=== PATIENT | male | born 1975 | race Caucasian/White ===

== ENCOUNTER 2017-10-19 15:18 | Emergency (ER) | payer MEDICAID ==
[~2017-10-19] VITALS: Ht 190.5 cm; Wt 88.9 kg
[~2017-10-19 15:18] MED LIST: AMPH30TA2 PO; FOLI-17 PO; GABA300C10 PO; LORA-446 PO; QUET25TA PO; QUET50TA5 PO; THIA100T6 PO; ZOLP10TA PO
[2017-10-19 15:20] VITALS: BP 138/91
== END 2017-10-19 16:40 | disposition left against medical advice (07) ==
LOC: ED 16:00
DX: F41.9 Anxiety disorder, unspecified (principal)
CPT/HCPCS: 99283

== ENCOUNTER 2018-01-27 16:33 | Emergency (ER) | payer MEDICAID ==
[~2018-01-27] VITALS: Ht 190.5 cm; Wt 87.9 kg
[2018-01-27] MEDS ORDERED: AMPH30TA2 PO (17:13)
[2018-01-27 17:22] VITALS: BP 113/80
== END 2018-01-27 17:42 | disposition home or self-care (01) ==
LOC: ED 17:37
DX: F41.9 Anxiety disorder, unspecified (principal); F15.10 Other stimulant abuse, uncomplicated; Z59.0 Homelessness; F32.9 Major depressive disorder, single episode, unspecified; F42.9 Obsessive-compulsive disorder, unspecified
CPT/HCPCS: 99284

== ENCOUNTER 2018-09-04 16:36 | Observation (INO) | payer MEDICAID ==
[~2018-09-04] VITALS: Ht 190.5 cm; Wt 89.9 kg
[~2018-09-04 16:36] MED LIST changes: -THIA100T6 PO; +THIA100T67 PO
[2018-09-04 17:30] LABS: BASOPHILS # (AUTO) 0.02 x10^3/uL (0-0.1); BASOPHILS % (AUTO) 0 % (0-1); EOSINOPHILS # (AUTO) 0.03 x10^3/uL (0-0.4); EOSINOPHILS % (AUTO) 1 % (1-7); LYMPHOCYTES # (AUTO) 3.03 x10^3/uL (1-3.4); LYMPHOCYTES % (AUTO) 49 % (22-44); MD NO; MEAN CORPUSCULAR HGB CONC 34.6 g/dL (33.2-36.2); MEAN CORPUSCULAR VOLUME 92.6 fL (81-97); MEAN PLATELET VOLUME 7.4 fL (7.4-10.4); MONOCYTES # (AUTO) 0.31 x10^3/uL (0.2-0.8); MONOCYTES % (AUTO) 5 % (2-9); NEUTROPHILS # (AUTO) 2.86 x10^3/uL (1.8-6.8); NEUTROPHILS % (AUTO) 46 % (42-75); PLATELET COUNT 288 x10^3/uL (130-400); RED BLOOD COUNT 4.99 x10^6/uL (4.38-5.82); RED CELL DISTRIBUTION WIDTH 13.6 % (9.4-14.8)
[2018-09-04 17:45] LABS: ALBUMIN 4.2 g/dL (3.4-5.0); ANION GAP 12 mmol/L (5-15); CALCIUM 8.5 mg/dL (8.5-10.1); CHLORIDE 103 mmol/L (98-107); CREATININE 0.88 mg/dL (0.7-1.3)
[2018-09-04 17:56] LABS: ACETAMINOPHEN < 2 mcg/mL (10-30); SALICYLATE LEVEL < 1.7 mg/dL (2.8-20.0)
[2018-09-04] MEDS: PLEASE ENTER HEIGHT AND WEIGHT MC SCH (22:15)
[2018-09-04] MEDS ORDERED: ONDANSETRON ODT 4 MG PO PRN (22:30)
[2018-09-04] MEDS ORDERED: ZIPRASIDONE 20 MG INJ IM PRN (22:30)
[2018-09-04] MEDS ORDERED: ZIPRASIDONE 20MG CAPSULE PO PRN (22:30)
[2018-09-04] MEDS ORDERED: DIPHENHYDRAMINE 50 MG CAPSULE PO PRN (22:30)
[2018-09-04] MEDS ORDERED: DOCUSATE 100 MG CAPSULE PO PRN (22:30)
[2018-09-04] MEDS ORDERED: ACETAMINOPHEN 325 MG TABLET PO PRN (22:30)
[2018-09-04 23:54] LABS: AMPHETAMINE SCREEN, URINE Positive (Negative); BARBITURATE SCREEN, URINE Negative (Negative); BENZODIAZEPINE SCREEN, URINE Negative (Negative); CANNABINOID SCREEN, URINE Negative (Negative); COCAINE SCREEN, URINE Negative (Negative); METHADONE SCREEN, URINE Negative (Negative); OPIATE SCREEN, URINE Negative (Negative)
[2018-09-05 00:41] VITALS: BP 112/71
[2018-09-05] MEDS: PLEASE ENTER HEIGHT AND WEIGHT MC SCH (00:57)
[2018-09-05 08:44] VITALS: BP 115/63
[2018-09-05] MEDS ORDERED: DOCU-131 PO (09:11)
== END 2018-09-05 09:17 ==
LOC: ED 20:57 → SUATTDRO 22:02 → EDIP 22:03 → 2N 09-05 00:31
PROVIDERS: ADMIT Family Medicine; ATTEND Family Medicine
DX: R45.851 Suicidal ideations (principal); F41.9 Anxiety disorder, unspecified; F32.9 Major depressive disorder, single episode, unspecified; F15.10 Other stimulant abuse, uncomplicated; F10.120 Alcohol abuse with intoxication, uncomplicated; F42.9 Obsessive-compulsive disorder, unspecified; F95.2 Tourette's disorder; F90.9 Attention-deficit hyperactivity disorder, unspecified type; Z91.19 Patient's noncompliance with other medical treatment and regimen
CPT/HCPCS: 36415; 80048; 80307; 80329; 82040; 85025; 99285; G0378; Q0177; G0480

== ENCOUNTER 2019-03-01 04:32 | Inpatient (IN) | payer MEDICAID ==
[~2019-03-01] VITALS: Ht 190.5 cm; Wt 93.3 kg
[~2019-03-01 04:32] MED LIST changes: +DOCU-131 PO; +GABA100C PO; +LORA2TAB99 PO; -QUET25TA PO; +QUET25TA7 PO
[2019-03-01] MEDS ORDERED: CHARCOAL/SORBITOL 50 GM/240 ML ONE (04:58)
--- NOTE | 2019-03-01 05:02 | NUR ---
Pt states hx of anxiety and takes gabapentin for anxiety. States hearing voices and taking 200, 300 mg gabapentin tablets today. Pa immediately notified. All monitoring hooked up, iv initiated, and 1 tube of activiated charcoal given per pa verbal order at 0500. Emesis bags given to pt.
--- NOTE | 2019-03-01 05:08 | NUR ---
case [id number] spoke with bradley salinas at poison control.
[2019-03-01] MEDS ORDERED: LORazepam 1MG TABLET PO ONE (05:30)
[2019-03-01] MEDS ORDERED: CHARCOAL/SORBITOL 50 GM/240 ML PO ONE (05:30)
[2019-03-01] MEDS ORDERED: LORazepam 1MG TABLET ONE ×2 (05:36→09:42)
[2019-03-01 05:38] LABS: AMPHETAMINE SCREEN, URINE Negative (Negative); BARBITURATE SCREEN, URINE Negative (Negative); BENZODIAZEPINE SCREEN, URINE Negative (Negative); CANNABINOID SCREEN, URINE Negative (Negative); COCAINE SCREEN, URINE Negative (Negative); METHADONE SCREEN, URINE Negative (Negative); OPIATE SCREEN, URINE Negative (Negative)
--- NOTE | 2019-03-01 05:40 | NUR ---
Poison control states peak onset of 1-3 hours and to observe pt for minimumof 6 hours. INHALATION THERAPY TEACHER depression biggest side effect, as well as hypotension. MD ordered 1 mg po ativan for d/t s/s. Pt is shaky at bedside and mildly tachycardic. Order clarified w/ and this rn gave via JAN. no other immediate needs from pt. Wctm.
[2019-03-01 05:45] LABS: BASOPHILS # (AUTO) 0.02 x10^3/uL (0-0.1); BASOPHILS % (AUTO) 0 % (0-1); EOSINOPHILS # (AUTO) 0.08 x10^3/uL (0-0.4); EOSINOPHILS % (AUTO) 1 % (1-7); LYMPHOCYTES # (AUTO) 2.64 x10^3/uL (1-3.4); LYMPHOCYTES % (AUTO) 46 % (22-44); MD NO; MEAN CORPUSCULAR HEMOGLOBIN 31.8 pg (27.5-34.5); MEAN CORPUSCULAR HGB CONC 34.9 g/dL (33.2-36.2); MEAN CORPUSCULAR VOLUME 91.3 fL (81-97); MEAN PLATELET VOLUME 7.4 fL (7.4-10.4); MONOCYTES # (AUTO) 0.37 x10^3/uL (0.2-0.8); MONOCYTES % (AUTO) 6 % (2-9); NEUTROPHILS # (AUTO) 2.67 x10^3/uL (1.8-6.8); NEUTROPHILS % (AUTO) 46 % (42-75); PLATELET COUNT 234 x10^3/uL (130-400); RED BLOOD COUNT 5.35 x10^6/uL (4.38-5.82); RED CELL DISTRIBUTION WIDTH 13.6 % (9.4-14.8)
[2019-03-01 05:57] LABS: ALBUMIN 4.5 g/dL (3.4-5.0); ANION GAP 10 mmol/L (5-15); CALCIUM 8.7 mg/dL (8.5-10.1); CHLORIDE 110 mmol/L (98-107)
[2019-03-01 05:59] LABS: SALICYLATE LEVEL < 1.7 mg/dL (2.8-20.0)
[2019-03-01 06:00] LABS: ALANINE AMINOTRANSFERASE 30 U/L (12-78); ALKALINE PHOSPHATASE 85 U/L (45-117); BILIRUBIN,TOTAL 0.3 mg/dL (0.2-1.0); CREATININE 1.08 mg/dL (0.7-1.3); TOTAL PROTEIN 7.5 g/dL (6.4-8.2)
[2019-03-01 06:04] LABS: ACETAMINOPHEN < 2 mcg/mL (10-30)
--- NOTE | 2019-03-01 06:13 | NUR ---
Appearing less anxious and less shakey. States feeling better after medical microbiologist. Wctm.
--- NOTE | 2019-03-01 06:57 | NUR ---
Pt report to francois WOO.
[2019-03-01] MEDS ORDERED: LORazepam 2 MG/ML, 1ML IVPush PRN (07:00)
--- NOTE | 2019-03-01 07:00 | NUR ---
SBAR RPT REC'D AND ASSUMED PT CARE. ROOM WITH GARAGE DOOR DOWN AT SINK AREA. HEAD WALL ACCESSABLE PT IS ON CARDIAC MONITORING 2/2 TO INGESTION OF GABAPETIN. SITTER AT DOORWAY WITH PT IN VIEW FOR SAFETY.
--- NOTE | 2019-03-01 07:42 | NUR ---
PT TO ROOM 345, BELONGINGS BAG X 1. PT TRANSPORTED VIA GURNEY WITH EMT, RN ESCORT. PT ON MONITOR.
[2019-03-01 07:50] VITALS: BP 158/103
[2019-03-01] MEDS: SODIUM CHLORIDE 0.9% 1,000 ML IV SCH (08:24)
[2019-03-01] MEDS ORDERED: ACETAMINOPHEN 325 MG TABLET PO PRN (08:30)
[2019-03-01] MEDS ORDERED: LORazepam 2 MG/ML, 1ML IV PRN (08:30)
[2019-03-01] MEDS ORDERED: LORazepam 1MG TABLET PO PRN (08:30)
[2019-03-01] MEDS ORDERED: ONDANSETRON ODT 4 MG PO PRN (08:30)
[2019-03-01] MEDS ORDERED: ONDANSETRON 2MG/ML, 2ML IVPush PRN (08:30)
[2019-03-01] MEDS: HEPARIN 5,000 UNITS/ML, 1ML SQ SCH ×2 (09:39→17:19)
[2019-03-01] MEDS: THIAMINE 100MG TABLET PO SCH (09:39)
[2019-03-01 13:14] VITALS: BP 136/85
[2019-03-01] MEDS: LORazepam 2 MG/ML, 1ML IV PRN ×2 (13:24→23:11)
[2019-03-01 19:50] VITALS: BP 144/78
[2019-03-02 01:56] VITALS: BP 121/71
[2019-03-02] MEDS: HEPARIN 5,000 UNITS/ML, 1ML SQ SCH ×3 (02:33→17:15)
[2019-03-02] MEDS: SODIUM CHLORIDE 0.9% 1,000 ML IV SCH (05:14)
[2019-03-02 05:23] LABS: MEAN CORPUSCULAR HGB CONC 34.8 g/dL (33.2-36.2); MEAN CORPUSCULAR VOLUME 92.1 fL (81-97); MEAN PLATELET VOLUME 7.4 fL (7.4-10.4); PLATELET COUNT 205 x10^3/uL (130-400); RED CELL DISTRIBUTION WIDTH 14.1 % (9.4-14.8)
[2019-03-02 05:41] LABS: ANION GAP 6 mmol/L (5-15); CALCIUM 8.5 mg/dL (8.5-10.1); CHLORIDE 108 mmol/L (98-107); CREATININE 0.85 mg/dL (0.7-1.3)
[2019-03-02 05:59] LABS: MD YES
[2019-03-02 06:01] LABS: <PLATELET ESTIMATE> ADEQUATE; <PLT MORPHOLOGY> NORMAL PLT MORPH; <RBC MORPHOLOGY> NORMAL; EOS#(MANUAL) 0.06 x10^3/uL (0.0-0.4); EOS% (MANUAL) 1 % (1-7); LYMPH#(MANUAL) 3.14 x10^3/uL (1-3.4); LYMPHS% (MANUAL) 57 % (22-44); MONOS#(MANUAL) 0.39 x10^3/uL (0.3-2.7); MONOS% (MANUAL) 7 % (2-9); SEG#(MANUAL) 1.93 x10^3/uL (1.8-6.8); SEGS% (MANUAL) 35 % (42-75)
[2019-03-02 07:25] VITALS: BP 106/80
[2019-03-02] MEDS: THIAMINE 100MG TABLET PO SCH (07:45)
[2019-03-02 12:04] VITALS: BP 121/87
[2019-03-02 19:30] VITALS: BP 179/108
[2019-03-02 21:35] VITALS: BP 129/83
[2019-03-02] MEDS: LORazepam 2 MG/ML, 1ML IV PRN (22:06)
[2019-03-03 00:02] VITALS: BP 139/80
[2019-03-03] MEDS: HEPARIN 5,000 UNITS/ML, 1ML SQ SCH ×2 (02:29→12:10)
[2019-03-03] MEDS: SODIUM CHLORIDE 0.9% 1,000 ML IV SCH (04:15)
[2019-03-03 07:03] VITALS: BP 135/83
[2019-03-03] MEDS: THIAMINE 100MG TABLET PO SCH (08:31)
[2019-03-03] MEDS ORDERED: LORazepam 1MG TABLET PO PRN (12:30)
[2019-03-03 13:53] VITALS: BP 132/80
[2019-03-03 15:07] VITALS: BP 106/61
[2019-03-03] MEDS ORDERED: ZOLP10TA PO (15:43)
[2019-03-03 20:31] VITALS: BP 126/64
== END 2019-03-03 22:30 | DRG 918 ==
LOC: ED 06:41 → EDIP 06:42 → ED 07:06 → 3NW 07:58 → 4WST 11:57 → 2N 03-03 14:54
PROVIDERS: ADMIT Internal Medicine; ATTEND Internal Medicine
DX: T42.6X2A Poisoning by other antiepileptic and sedative-hypnotic drugs, intentional self-harm, initial encounter (principal); F10.239 Alcohol dependence with withdrawal, unspecified; F41.1 Generalized anxiety disorder; F42.9 Obsessive-compulsive disorder, unspecified; F90.9 Attention-deficit hyperactivity disorder, unspecified type; F32.9 Major depressive disorder, single episode, unspecified; I10 Essential (primary) hypertension; Y90.9 Presence of alcohol in blood, level not specified; G47.00 Insomnia, unspecified; Z91.19 Patient's noncompliance with other medical treatment and regimen; Z71.51 Drug abuse counseling and surveillance of drug abuser; Z91.5 Personal history of self-harm; Y92.89 Other specified places as the place of occurrence of the external cause; Z79.899 Other long term (current) drug therapy
CPT/HCPCS: 36415; 80048; 80053; 80307; 80329; 83735; 85025; 93005; 99285; G0378; J1644; Q0162; G0480; J2060; J7030

== ENCOUNTER 2019-03-17 21:02 | Emergency (ER) | payer MEDICAID ==
[~2019-03-17] VITALS: Ht 190.5 cm; Wt 91.5 kg
--- NOTE | 2019-03-17 21:30 | NUR ---
PT UNDRESSED AND PLACED IN GOWN, ROOM SECURED, SITTER AT DOORWAY. URINE COLLECTED/WALKED TO LAB. PT GIVING VARYING REPORTS OF WHY HE IS HERE TODAY. TO ERP, PT STATES HE TOOK EXTRA CLONIDINE AND DRANK ALCOHOL DUE TO ANXIETY AND STRESS TONIGHT. PT STATES HE HAS BEEN OUT OF REGULAR PRESCRIBED MEDS. PT TOLD OTHER STAFF, SA 2 HOURS STATION TENDER WITH 200 OR MORE CLONIDINE. PT ANXIOUSLY APPEARING BUT COOPERATIVE WITH CARE.
[2019-03-17 22:23] LABS: BASOPHILS # (AUTO) 0.01 x10^3/uL (0-0.1); BASOPHILS % (AUTO) 0 % (0-1); EOSINOPHILS # (AUTO) 0.03 x10^3/uL (0-0.4); EOSINOPHILS % (AUTO) 1 % (1-7); LYMPHOCYTES # (AUTO) 2.99 x10^3/uL (1-3.4); LYMPHOCYTES % (AUTO) 55 % (22-44); MD NO; MEAN CORPUSCULAR HEMOGLOBIN 31.9 pg (27.5-34.5); MEAN CORPUSCULAR HGB CONC 34.8 g/dL (33.2-36.2); MEAN CORPUSCULAR VOLUME 91.9 fL (81-97); MEAN PLATELET VOLUME 7.3 fL (7.4-10.4); MONOCYTES # (AUTO) 0.26 x10^3/uL (0.2-0.8); MONOCYTES % (AUTO) 5 % (2-9); NEUTROPHILS # (AUTO) 2.15 x10^3/uL (1.8-6.8); NEUTROPHILS % (AUTO) 40 % (42-75); PLATELET COUNT 273 x10^3/uL (130-400); RED BLOOD COUNT 4.99 x10^6/uL (4.38-5.82); RED CELL DISTRIBUTION WIDTH 13.8 % (9.4-14.8)
[2019-03-17 22:24] LABS: AMPHETAMINE SCREEN, URINE Negative (Negative); BARBITURATE SCREEN, URINE Negative (Negative); BENZODIAZEPINE SCREEN, URINE Negative (Negative); CANNABINOID SCREEN, URINE Negative (Negative); COCAINE SCREEN, URINE Negative (Negative); METHADONE SCREEN, URINE Negative (Negative); OPIATE SCREEN, URINE Negative (Negative)
[2019-03-17 22:35] LABS: ALANINE AMINOTRANSFERASE 33 U/L (12-78); ALBUMIN 4.3 g/dL (3.4-5.0); ANION GAP 7 mmol/L (5-15); CALCIUM 8.7 mg/dL (8.5-10.1); CHLORIDE 108 mmol/L (98-107)
[2019-03-17 22:36] LABS: SALICYLATE LEVEL < 1.7 mg/dL (2.8-20.0)
[2019-03-17 22:37] LABS: ALKALINE PHOSPHATASE 70 U/L (45-117); BILIRUBIN,TOTAL 0.5 mg/dL (0.2-1.0); CREATININE 1.12 mg/dL (0.7-1.3); TOTAL PROTEIN 7.3 g/dL (6.4-8.2)
[2019-03-17 22:39] LABS: ACETAMINOPHEN < 2 mcg/mL (10-30)
--- NOTE | 2019-03-17 22:57 | NUR ---
RESULTS BACK, NEED TO WAIT UNTIL PT SOBER THEN EVAL BY [facility]. PT RESTING QUIETLY, NAD. SITTER AT DOORWAY. Addendum: 03/17/19 at 2329 by JHONATAN PT GIVEN WATER AND WARM BLANKET AND UPDATED ON POC.
[2019-03-17] MEDS ORDERED: TRAZODONE 50MG TABLET ONE (23:43)
--- NOTE | 2019-03-17 23:45 | NUR ---
PER SITTER, PT RUSHED FROM ROOM TO BR AND BANGING ON WALL IN BR. THIS RN TO BR, ASKED IF PT OKAY. PT ANSWERS AND OPENS DOOR IMMEDIATELY STATING "I'M SO ANXIOUS RIGHT NOW, I NEED SOME VISTARIL, ATIVAN, OR TRAMADOL. I CAN'T STAND IT". PT WALKED BACK TO ROOM, TOLD REQUEST WOULD BE MADE TO ERP AND ASKED PT TO STAY IN ROOM. SITTER AT DOORWAY. ERP NOTIFIED OF PT BEHAVIOR, ORDER OBTAINED AND MED GIVEN PER ERP ORDER.
--- NOTE | 2019-03-17 23:59 | NUR ---
REPORT TO RIYA WOO, TRANSFER OF CARE AT THIS TIME.
[2019-03-18] MEDS ORDERED: TRAZODONE 50MG TABLET PO ONE
[2019-03-18] MEDS ORDERED: TRAZODONE 100MG TABLET PO ONE
--- NOTE | 2019-03-18 00:40 | NUR ---
PT RESTING CALMLY IN BED WITH EYES CLOSED. NO STATED NEEDS AT THIS TIME. SITTER AT DOOR FOR OBS.
--- NOTE | 2019-03-18 01:29 | NUR ---
PT RESTING CALMLY IN BED WITH EYES CLOSED, RESP EVEN AND NON LABORED. SITTER AT DOOR FOR OBS.
--- NOTE | 2019-03-18 02:23 | NUR ---
pt resting calmly in bed. no stated needs at this time. sitter at door for obs.
--- NOTE | 2019-03-18 03:07 | NUR ---
PT RESTING CALMLY IN BED WITH EYES CLOSED. RESP EVEN AND NON LABORED. SITTER AT DOOR FOR FREQUENT OBS.
--- NOTE | 2019-03-18 04:20 | NUR ---
PT RESTING CALMLY IN BED WITH EYES CLOSED. NO STATED NEEDS AT THIS TIME. SITTER AT DOOR FOR FREQUENT OBS.
--- NOTE | 2019-03-18 05:42 | NUR ---
PT CONTINUES TO REST IN BED. NO STATED NEEDS AT THIS TIME. SITTER AT DOOR. BREAKFAST HAS BEEN ORDRED.
--- NOTE | 2019-03-18 06:00 | NUR ---
[facility] contacted and all information provided
--- NOTE | 2019-03-18 06:42 | NUR ---
NICOLE CALLED AND STATES ETA [phone]
--- NOTE | 2019-03-18 07:08 | NUR ---
REPORT GIVEN TO [facility]ARE HEATING EQUIPMENT INSTALLER. REPORT ALSO GIVEN TO PAULINE WOO
--- NOTE | 2019-03-18 07:23 | NUR ---
REPORT FROM CHILO RITTER. CARE ASSUMED. PT RESTING IN ROOM, SITTER IN HALLWAY. NO NEEDS CURRENTLY.
[2019-03-18 07:44] VITALS: BP 134/90
--- NOTE | 2019-03-18 08:15 | NUR ---
[facility] AT BEDSIDE
--- NOTE | 2019-03-18 08:53 | NUR ---
[facility] RE[facility] PL[facility] FOR PT CARE. PT RESTING COMFORTABLY IN BED. SITTER REMAINS IN HALLWAY.
[2019-03-18] MEDS ORDERED: LORazepam 1MG TABLET ONE (09:36)
[2019-03-18] MEDS ORDERED: LORazepam 1MG TABLET PO ONE (10:00)
--- NOTE | 2019-03-18 10:11 | NUR ---
PT TO BE DC TO [facility] AT 1130. AWARE. REMAINS RESTING IN ROOM. NO NEEDS AT THIS TIME.
--- NOTE | 2019-03-18 11:15 | NUR ---
REMAINS RESTING IN ROOM. NO NEEDS AT THIS TIME. SITTER IN HALLWAY.
== END 2019-03-18 11:30 ==
LOC: ED 22:20
DX: F10.229 Alcohol dependence with intoxication, unspecified (principal); Z72.9 Problem related to lifestyle, unspecified; F32.9 Major depressive disorder, single episode, unspecified; F42.9 Obsessive-compulsive disorder, unspecified; F98.8 Other specified behavioral and emotional disorders with onset usually occurring in childhood and adolescence
CPT/HCPCS: 36415; 80053; 80307; 85025; 99285

== ENCOUNTER 2019-05-30 21:22 | Emergency (ER) | payer MEDICAID ==
[~2019-05-30] VITALS: Ht 190.5 cm; Wt 94.8 kg
[2019-05-30 21:24] VITALS: BP 138/92
== END 2019-05-30 23:21 | disposition home or self-care (01) ==
LOC: ED 22:35
DX: F41.1 Generalized anxiety disorder (principal); Z72.9 Problem related to lifestyle, unspecified; Y90.0 Blood alcohol level of less than 20 mg/100 ml; F32.9 Major depressive disorder, single episode, unspecified; F98.8 Other specified behavioral and emotional disorders with onset usually occurring in childhood and adolescence; F42.9 Obsessive-compulsive disorder, unspecified; F10.129 Alcohol abuse with intoxication, unspecified
CPT/HCPCS: 36415; 80053; 80307; 85025; 93005; 99284

== ENCOUNTER 2019-06-01 13:49 | Emergency (ER) | payer MEDICAID ==
[~2019-06-01] VITALS: Ht 190.5 cm; Wt 93.2 kg
[2019-06-01 14:14] LABS: BASOPHILS # (AUTO) 0.05 x10^3/uL (0-0.1); BASOPHILS % (AUTO) 1 % (0-1); EOSINOPHILS # (AUTO) 0.04 x10^3/uL (0-0.4); EOSINOPHILS % (AUTO) 0 % (1-7); LYMPHOCYTES # (AUTO) 3.09 x10^3/uL (1-3.4); LYMPHOCYTES % (AUTO) 34 % (22-44); MD NO; MEAN CORPUSCULAR HEMOGLOBIN 31.3 pg (27.5-34.5); MEAN CORPUSCULAR HGB CONC 32.7 g/dL (33.2-36.2); MEAN CORPUSCULAR VOLUME 95.9 fL (81-97); MEAN PLATELET VOLUME 7.3 fL (7.4-10.4); MONOCYTES # (AUTO) 0.44 x10^3/uL (0.2-0.8); MONOCYTES % (AUTO) 5 % (2-9); NEUTROPHILS # (AUTO) 5.38 x10^3/uL (1.8-6.8); NEUTROPHILS % (AUTO) 60 % (42-75); PLATELET COUNT 337 x10^3/uL (130-400); RED BLOOD COUNT 5.91 x10^6/uL (4.38-5.82); RED CELL DISTRIBUTION WIDTH 14.1 % (9.4-14.8)
[2019-06-01 14:25] LABS: ALBUMIN 5.2 g/dL (3.4-5.0); ANION GAP 6 mmol/L (5-15); CALCIUM 9.4 mg/dL (8.5-10.1); CHLORIDE 106 mmol/L (98-107); CREATININE 1.16 mg/dL (0.7-1.3)
[2019-06-01 14:27] LABS: SALICYLATE LEVEL < 1.7 mg/dL (2.8-20.0)
--- NOTE | 2019-06-01 15:03 | NUR ---
PT AMBULATORY TO ROOM. ALL CLOTHES OFF AND BELONGINGS IN BAG AND PUT IN SECURE LOCKER. ROOM SECURED. SITTER AT BEDSIDE. PT STATES HE IS HERE BECAUSE HE IS FEELING SUICIDAL AT THIS TIME. STATES HE WOULD NORMALLY "TAKE PILLS" HIS PLAN BUT HE CURRENTLY HAS NO PILLS. STATES HE WAS HERE LAST NIGHT AND WAS DISCHARGED WITH GABAPENTIN WHICH HE WAS UNABLE TO FILL. PT IS APPROPRIATELY RESPONDING TO QUESTIONS. RESTING ON JACINTO. NADN. DE LEON.
[2019-06-01] MEDS ORDERED: LORazepam 2 MG/ML, 1ML ONE ×2 (15:09→21:19)
[2019-06-01] MEDS ORDERED: THIAMINE 100 MG/ML, 2ML ONE (15:11)
[2019-06-01 15:30] LABS: AMPHETAMINE SCREEN, URINE Positive (Negative); BARBITURATE SCREEN, URINE Negative (Negative); BENZODIAZEPINE SCREEN, URINE Negative (Negative); CANNABINOID SCREEN, URINE Negative (Negative); COCAINE SCREEN, URINE Negative (Negative); METHADONE SCREEN, URINE Negative (Negative); OPIATE SCREEN, URINE Negative (Negative)
[2019-06-01] MEDS ORDERED: THIAMINE 100 MG/ML, 2ML IM ONE (15:30)
[2019-06-01] MEDS ORDERED: SODIUM CHLORIDE FLUSH 10ML SYR IVF ONE (15:30)
[2019-06-01] MEDS ORDERED: SODIUM CHLORIDE 0.9% 1,000ML IVBOLUS ONE (15:30)
[2019-06-01] MEDS: LORazepam 2 MG/ML, 1ML IVPush PRN ×2 (15:53→21:25)
--- NOTE | 2019-06-01 15:54 | NUR ---
PT MEDICATED PER EMAR. RESTING ON GURNEY. NADN. REQUESTING CRACKERS AND WATER. PROVIDED WITH THEM.
--- NOTE | 2019-06-01 16:14 | NUR ---
PT STATES HE DRINKS 16 SHOTS/DAY. PT CURRENTLY RESTING ON GURNEY EATING SNACKS AND DRINKING WATER. DENIES NEEDS.
--- NOTE | 2019-06-01 16:28 | NUR ---
PT CONNECTED TO MONITOR. RESTING ON GURNEY. CHUYITAN. VSS. DENIES NEEDS. SITTER MONITORING PT.
[2019-06-01] MEDS ORDERED: CHLORDIAZEPOXIDE 25 MG CAPSULE PO PRN (16:30)
[2019-06-01] MEDS ORDERED: CHLORDIAZEPOXIDE 25 MG CAPSULE ONE (16:32)
--- NOTE | 2019-06-01 17:32 | NUR ---
PT RESTING ON JACINTO. ISAIAH. VSS. DENIES NEEDS.
--- NOTE | 2019-06-01 17:51 | NUR ---
PT BREATHYLIZED AT THIS TIME- 0.112
--- NOTE | 2019-06-01 18:04 | NUR ---
PT GIVEN DINNER AT THIS TIME. SITTING ON GURNEY. VSS. NADN. DENIES NEEDS. SITTER AT BEDSIDE.
--- NOTE | 2019-06-01 18:25 | NUR ---
PT RESTING ON JACINTO. JERRIS. ISAIAH. DENIES NEEDS. SITTER AT BEDSIDE.
--- NOTE | 2019-06-01 18:54 | NUR ---
REPORT RECIEVED FROM CHILO SHAFFER. PT RESTING COMFORTABLY IN STRECHTER. PT CURRENTLY ON THE MONITOR. VSS. PT HAS EVEN EQUAL CHEST RISE AND FALL. SITTER PRESENT.
--- NOTE | 2019-06-01 20:41 | NUR ---
[facility] AT BEDSIDE TO ASSESS PATIENT. PT COOPERATIVE.
--- NOTE | 2019-06-01 21:25 | NUR ---
PT REPORTS FEELING MORE ANXIOUS. CIWA UPDATED. PT MEDICATED PER MAR.
--- NOTE | 2019-06-01 21:33 | NUR ---
ELIZABETH RN: PACKET FAXED TO [facility], [facility], AND [facility]. AWAITING CONFIRMATION FAX.
--- NOTE | 2019-06-01 21:56 | NUR ---
ELIZABETH RN: RECEIVED FAX CONFIRMATION BACK FROM LISTED FACILITIES IN ABOVE NOTE.
--- NOTE | 2019-06-01 22:53 | NUR ---
TP RN: MEGAN FROM [facility] CALLED AND THEY WILL ACCEPT PT. AFTER 0000. ACCE[address] BUSBY
[2019-06-01 23:27] VITALS: BP 116/57
--- NOTE | 2019-06-02 00:03 | NUR ---
PT TO [facility] WITH [facility]. BELONGINGS WITH PATIENT. PT AMBULATORY WITH STEADY GAIT.
== END 2019-06-02 00:04 ==
LOC: ED 16:36
DX: F10.129 Alcohol abuse with intoxication, unspecified (principal); F32.9 Major depressive disorder, single episode, unspecified; F41.1 Generalized anxiety disorder; Z72.9 Problem related to lifestyle, unspecified; F98.8 Other specified behavioral and emotional disorders with onset usually occurring in childhood and adolescence; F42.9 Obsessive-compulsive disorder, unspecified; R11.2 Nausea with vomiting, unspecified
CPT/HCPCS: 36415; 80048; 80307; 82040; 85025; 96361; 96372; 96374; 96376; 99285; J2060; J3411; J7030

== ENCOUNTER 2019-12-14 22:16 | Emergency (ER) | payer MEDICAID ==
[~2019-12-14] VITALS: Ht 188 cm; Wt 100.0 kg
--- NOTE | 2019-12-14 22:23 | NUR ---
BIB [facility]. PT STATES HE WANTS TO OD BY TAKING A BUNCH OF PILL. PT NOT SPECIFIC ABOUT WHAT KIND OF PILL. PT ALSO ADMITS TO SIGNIFICANT ALCOHOL INTAKE BUT AGAIN REFUSES TO BE SPECIFIC ON QUANTITY/TPYE. EXTENSIVE HX OF SI, INPATIENT PSYCH ADMISSIONS.
--- NOTE | 2019-12-14 22:30 | NUR ---
PT PLACED IN SAFE ROOM, SITTER AT DOORWAY, PLACED IN GOWN, BELONGINGS PUT IN LOCKER.
[2019-12-14 22:54] LABS: BASOPHILS # (AUTO) 0.01 x10^3/uL (0-0.1); BASOPHILS % (AUTO) 0 % (0-1); EOSINOPHILS # (AUTO) 0.06 x10^3/uL (0-0.4); EOSINOPHILS % (AUTO) 1 % (1-7); LYMPHOCYTES # (AUTO) 2.83 x10^3/uL (1-3.4); LYMPHOCYTES % (AUTO) 53 % (22-44); MD NO; MEAN CORPUSCULAR HEMOGLOBIN 30.7 pg (27.5-34.5); MEAN CORPUSCULAR HGB CONC 34.1 g/dL (33.2-36.2); MEAN PLATELET VOLUME 7.7 fL (7.4-10.4); MONOCYTES # (AUTO) 0.33 x10^3/uL (0.2-0.8); MONOCYTES % (AUTO) 6 % (2-9); NEUTROPHILS # (AUTO) 2.15 x10^3/uL (1.8-6.8); NEUTROPHILS % (AUTO) 40 % (42-75); PLATELET COUNT 232 x10^3/uL (130-400); RED CELL DISTRIBUTION WIDTH 12.4 % (9.4-14.8)
[2019-12-14 23:05] LABS: ALBUMIN 4.3 g/dL (3.4-5.0); ANION GAP 9 mmol/L (5-15); CHLORIDE 110 mmol/L (98-107)
[2019-12-14 23:08] LABS: ALANINE AMINOTRANSFERASE 32 U/L (12-78); ALKALINE PHOSPHATASE 63 U/L (45-117); BILIRUBIN,TOTAL 0.3 mg/dL (0.2-1.0); CREATININE 0.98 mg/dL (0.7-1.3); TOTAL PROTEIN 7.4 g/dL (6.4-8.2)
[2019-12-14 23:14] LABS: SALICYLATE LEVEL < 1.7 mg/dL (2.8-20.0)
--- NOTE | 2019-12-14 23:15 | NUR ---
PT UP TO BR. NO OTHER NEEDS AT THIS TIME.
[2019-12-14 23:42] LABS: AMPHETAMINE SCREEN, URINE Negative (Negative); BARBITURATE SCREEN, URINE Negative (Negative); BENZODIAZEPINE SCREEN, URINE Negative (Negative); CANNABINOID SCREEN, URINE Negative (Negative); COCAINE SCREEN, URINE Negative (Negative); METHADONE SCREEN, URINE Negative (Negative); OPIATE SCREEN, URINE Negative (Negative)
--- NOTE | 2019-12-15 00:15 | NUR ---
PT RESTING WITH EYES CLOSED. SITTER IN DOORWAY.
--- NOTE | 2019-12-15 01:15 | NUR ---
PT RESTING WITH EYES CLOSED. SITTER IN DOORWAY.
--- NOTE | 2019-12-15 02:15 | NUR ---
PT UP TO BR. SITTER IN DOORWAY. NO OTHER NEEDS AT THIS TIME.
--- NOTE | 2019-12-15 03:00 | NUR ---
BA RECHECK. 0.100. PT RESTING COMFORTABLY. PT ABLE TO CARRY CONVERSATION. STATES HE IS VERY DEPRESSED AND STILL HAVING SI BY DRINKING AND TAKING PILLS. SNOUT PULLER NOTIFIED.
--- NOTE | 2019-12-15 04:00 | NUR ---
PT RESTING WITH EYES CLOSED. SITTER IN DOORWAY.
--- NOTE | 2019-12-15 05:01 | NUR ---
PT RESTING WITH EYES CLOSED. SITTER IN DOORWAY.
--- NOTE | 2019-12-15 06:00 | NUR ---
RPT TO TELEPSYCH. PT DENIES SI, STATES HE IS DEPRESSED AND THE ALCOHOL PROABLY HAS SOMETHING TO DO WITH IT. TELEPSYCH RECOMMENDING DC.
[2019-12-15 06:16] VITALS: BP 131/84
== END 2019-12-15 07:07 | disposition home or self-care (01) ==
LOC: ED 12-15 00:19
DX: F10.120 Alcohol abuse with intoxication, uncomplicated (principal); R45.851 Suicidal ideations; Y90.9 Presence of alcohol in blood, level not specified
CPT/HCPCS: 36415; 80053; 80307; 85025; 99283

== ENCOUNTER 2020-01-10 18:36 | Emergency (ER) | payer MEDICAID ==
[~2020-01-10] VITALS: Ht 190.5 cm; Wt 110.0 kg
--- NOTE | 2020-01-10 18:59 | NUR ---
ADRIAN. REPORT RECEIVED FROM EMS. PT WAS FOUND IN FRONT OF [facility]. PT STATES "I DON'T WANNA LIVE ANYMORE." +ETOH/OVERDOSE(POSSIBLE TEMAZEPAM 30MG X 10 PILLS). PT'S AOX4. SI. DENIES HI. ALL MONITORS IN PLACE. CALL LIGHT WITHIN REACH. NSR RATE 80'S ON [place] [address] AT THIS TIME.
--- NOTE | 2020-01-10 19:01 | NUR ---
REPORT GIVEN TO ERLINDA WOO.
--- NOTE | 2020-01-10 19:18 | NUR ---
ASSUMED CARE OF PT. 02 SAT DOWN TO 85% ON RA, PLACED 2L NC NOW 95%. SAFETY PRECAUTIONS IN PLACE.
--- NOTE | 2020-01-10 19:30 | NUR ---
PT AGRESSIVE AND COMBATIVE TOWARD STAFF, SECURITY CALLED AND INITIATED BEHAVIORAL RESTRAINTS, ORDER SIGNED BY ERP.
[2020-01-10 20:19] LABS: AMPHETAMINE SCREEN, URINE Positive (Negative); BARBITURATE SCREEN, URINE Negative (Negative); BENZODIAZEPINE SCREEN, URINE Positive (Negative); CANNABINOID SCREEN, URINE Negative (Negative); COCAINE SCREEN, URINE Negative (Negative); METHADONE SCREEN, URINE Negative (Negative); OPIATE SCREEN, URINE Negative (Negative)
[2020-01-10 20:22] LABS: BASOPHILS # (AUTO) 0.01 x10^3/uL (0-0.1); BASOPHILS % (AUTO) 0 % (0-1); EOSINOPHILS # (AUTO) 0.15 x10^3/uL (0-0.4); EOSINOPHILS % (AUTO) 2 % (1-7); LYMPHOCYTES # (AUTO) 2.56 x10^3/uL (1-3.4); LYMPHOCYTES % (AUTO) 41 % (22-44); MD NO; MEAN CORPUSCULAR HEMOGLOBIN 30.3 pg (27.5-34.5); MEAN CORPUSCULAR VOLUME 88.9 fL (81-97); MEAN PLATELET VOLUME 7.2 fL (7.4-10.4); MONOCYTES # (AUTO) 0.28 x10^3/uL (0.2-0.8); MONOCYTES % (AUTO) 5 % (2-9); NEUTROPHILS # (AUTO) 3.33 x10^3/uL (1.8-6.8); NEUTROPHILS % (AUTO) 53 % (42-75); PLATELET COUNT 340 x10^3/uL (130-400); RED BLOOD COUNT 4.75 x10^6/uL (4.38-5.82); RED CELL DISTRIBUTION WIDTH 12.9 % (9.4-14.8)
[2020-01-10 20:28] LABS: ALANINE AMINOTRANSFERASE 30 U/L (12-78); ALBUMIN 3.5 g/dL (3.4-5.0); ANION GAP 7 mmol/L (5-15); CALCIUM 8.4 mg/dL (8.5-10.1); CHLORIDE 108 mmol/L (98-107); CREATININE 1.09 mg/dL (0.7-1.3); SALICYLATE LEVEL < 1.7 mg/dL (2.8-20.0)
[2020-01-10 20:30] LABS: ALKALINE PHOSPHATASE 86 U/L (45-117); BILIRUBIN,TOTAL 0.3 mg/dL (0.2-1.0); TOTAL PROTEIN 6.9 g/dL (6.4-8.2)
--- NOTE | 2020-01-10 22:12 | NUR ---
RESTRAINTS REMOVED, PT AGREED TO COOPERATE WITH RN AND STAFF. SAFETY PRECAUTIONS IN PLACE.
[2020-01-10 22:44] VITALS: BP 113/73
== END 2020-01-10 23:05 | disposition home or self-care (01) ==
LOC: ED 18:46
DX: F10.120 Alcohol abuse with intoxication, uncomplicated (principal); F15.10 Other stimulant abuse, uncomplicated; Z72.9 Problem related to lifestyle, unspecified; Y90.0 Blood alcohol level of less than 20 mg/100 ml
CPT/HCPCS: 36415; 80053; 80307; 85025; 99283

== ENCOUNTER 2020-02-14 16:25 | Emergency (ER) | payer MEDICAID ==
[~2020-02-14] VITALS: Ht 190.5 cm; Wt 110.0 kg
[2020-02-14 17:03] LABS: BASOPHILS # (AUTO) 0.03 x10^3/uL (0-0.1); BASOPHILS % (AUTO) 1 % (0-1); EOSINOPHILS # (AUTO) 0.09 x10^3/uL (0-0.4); EOSINOPHILS % (AUTO) 1 % (1-7); LYMPHOCYTES # (AUTO) 2.19 x10^3/uL (1-3.4); LYMPHOCYTES % (AUTO) 35 % (22-44); MD NO; MEAN CORPUSCULAR HGB CONC 33.8 g/dL (33.2-36.2); MEAN CORPUSCULAR VOLUME 88.9 fL (81-97); MEAN PLATELET VOLUME 7.8 fL (7.4-10.4); MONOCYTES # (AUTO) 0.42 x10^3/uL (0.2-0.8); MONOCYTES % (AUTO) 7 % (2-9); NEUTROPHILS # (AUTO) 3.55 x10^3/uL (1.8-6.8); NEUTROPHILS % (AUTO) 57 % (42-75); PLATELET COUNT 205 x10^3/uL (130-400); RED BLOOD COUNT 4.89 x10^6/uL (4.38-5.82); RED CELL DISTRIBUTION WIDTH 13.7 % (9.4-14.8)
[2020-02-14 17:07] LABS: ALANINE AMINOTRANSFERASE 69 U/L (12-78); ALBUMIN 4.1 g/dL (3.4-5.0); ANION GAP 4 mmol/L (5-15); CALCIUM 8.5 mg/dL (8.5-10.1); CHLORIDE 108 mmol/L (98-107); CREATININE 1.06 mg/dL (0.7-1.3)
[2020-02-14 17:08] LABS: SALICYLATE LEVEL < 1.7 mg/dL (2.8-20.0)
[2020-02-14 17:09] LABS: ALKALINE PHOSPHATASE 56 U/L (45-117); BILIRUBIN,TOTAL 0.7 mg/dL (0.2-1.0)
--- NOTE | 2020-02-14 17:11 | NUR ---
Pt unarousable. Not able to complete physical assessment or h&p. Placed on 2lt oxygen nc. Eye opening to sternal rub.
--- NOTE | 2020-02-14 18:12 | NUR ---
PT SITTING IN BED, EYES CLOSED, RESPIRATIONS EVEN AND UNLABORED, NO SIGNS OF DISTRESS.
[2020-02-14 18:24] LABS: AMPHETAMINE SCREEN, URINE Negative (Negative); BARBITURATE SCREEN, URINE Negative (Negative); BENZODIAZEPINE SCREEN, URINE Positive (Negative); CANNABINOID SCREEN, URINE Negative (Negative); COCAINE SCREEN, URINE Negative (Negative); METHADONE SCREEN, URINE Negative (Negative); OPIATE SCREEN, URINE Negative (Negative)
--- NOTE | 2020-02-14 19:01 | NUR ---
REPORT GIVEN TO CHILO SIERRA.
--- NOTE | 2020-02-14 19:08 | NUR ---
Report received from CHILO Morgan. This RN to assume care. Patient resting in [place] with no complaints. Respirations even and unlabored.
[2020-02-14 20:49] VITALS: BP 97/62
--- NOTE | 2020-02-14 20:51 | NUR ---
Patient woke up and states he took more Tomazepam than he usually does along with two "tall boys." He states he just got kicked out of where he was living so he just wanted to forget about it for a day. Patient denies SI/HI.
--- NOTE | 2020-02-14 21:21 | NUR ---
Patient states he is feeling better. Patient is AAOx4, GCS 15. Discharge instructions given. All questions and concerns addressed. Patient ambulatory with steady gait. Belongings with patient.
== END 2020-02-14 21:47 | disposition home or self-care (01) ==
LOC: ED 19:40
DX: F13.129 Sedative, hypnotic or anxiolytic abuse with intoxication, unspecified (principal); R53.83 Other fatigue
CPT/HCPCS: 36415; 80053; 80307; 85025; 99285

== ENCOUNTER 2020-10-11 19:56 | Emergency (ER) | payer MEDICAID ==
[~2020-10-11] VITALS: Ht 190.5 cm; Wt 100.0 kg
[2020-10-11 22:03] VITALS: BP 116/67
== END 2020-10-11 22:06 | disposition home or self-care (01) ==
LOC: ED 21:16
DX: S01.01XA Laceration without foreign body of scalp, initial encounter (principal); Z76.0 Encounter for issue of repeat prescription; F17.200 Nicotine dependence, unspecified, uncomplicated; F15.10 Other stimulant abuse, uncomplicated; Y00.XXXA Assault by blunt object, initial encounter; Y93.89 Activity, other specified; Y92.410 Unspecified street and highway as the place of occurrence of the external cause; Y99.8 Other external cause status
CPT/HCPCS: 12032; 70450; 99284

== ENCOUNTER 2020-11-27 19:19 | Emergency (ER) | payer MEDICAID ==
[~2020-11-27] VITALS: Ht 190.5 cm; Wt 72.0 kg
--- NOTE | 2020-11-27 19:24 | NUR ---
Patient BIB ambulance from [facility] for possible OD. EMS states they were at [facility] dropping off another patient when they were approached by staff. Staff stated that patient was lethargic and they saw him drinking hand supervisor data processing. Patient admits to drinking some hand supervisor data processing and when asked why, he states, "I just did it. I did it." Patient states he has done this before with his brother. Patient also admits to drinking a fifth of [employer] and inhaling meth. Patient c/o lightheadedness. Denies nausea. Patient is in NAD. Respirations even and unlabored. Appears tired.
--- NOTE | 2020-11-27 19:33 | NUR ---
Patient denies SI. States he just wanted to take all these substances.
[2020-11-27 21:04] LABS: ALANINE AMINOTRANSFERASE 37 U/L (12-78); ANION GAP 7 mmol/L (5-15); BASOPHILS % (AUTO) 0 % (0-1); CALCIUM 8.6 mg/dL (8.5-10.1); CHLORIDE 102 mmol/L (98-107); EOSINOPHILS % (AUTO) 2 % (1-7); LYMPHOCYTES % (AUTO) 48 % (22-44); MEAN CORPUSCULAR HEMOGLOBIN 31.3 pg (27.5-34.5); MEAN CORPUSCULAR HGB CONC 34.9 g/dL (33.2-36.2); MEAN PLATELET VOLUME 6.8 fL (7.4-10.4); MONOCYTES % (AUTO) 8 % (2-9); NEUTROPHILS % (AUTO) 42 % (42-75); PLATELET COUNT 264 x10^3/uL (130-400); RED BLOOD COUNT 4.73 x10^6/uL (4.38-5.82); RED CELL DISTRIBUTION WIDTH 14.4 % (9.4-14.8); SALICYLATE LEVEL < 1.7 mg/dL (2.8-20.0)
[2020-11-27 21:06] LABS: ALKALINE PHOSPHATASE 98 U/L (45-117); BILIRUBIN,TOTAL 0.7 mg/dL (0.2-1.0); CREATININE 1.03 mg/dL (0.7-1.3); TOTAL PROTEIN 7.2 g/dL (6.4-8.2)
[2020-11-27 21:07] LABS: MD NO
[2020-11-27 23:20] VITALS: BP 101/60
== END 2020-11-27 23:57 | disposition home or self-care (01) ==
LOC: ED 21:32
DX: F15.229 Other stimulant dependence with intoxication, unspecified (principal); Z72.9 Problem related to lifestyle, unspecified; R94.31 Abnormal electrocardiogram [ECG] [EKG]
CPT/HCPCS: 36415; 80053; 80299; 80320; 80329; 85025; 93005; 99284; G0480

== ENCOUNTER 2020-12-15 07:48 | Inpatient (IN) | payer MEDICAID ==
[~2020-12-15] VITALS: Ht 190.5 cm; Wt 89.1 kg
[~2020-12-15 07:48] MED LIST changes: -FOLI-17 PO; +FOLI1TAB32 PO
[2020-12-15] MEDS ORDERED: SODIUM CHLORIDE 0.9% 1,000ML IVBOLUS ONE ×2 (08:30→09:30)
--- NOTE | 2020-12-15 08:31 | NUR ---
PATIENT BIB EMS FOR CHIEF C/O SA AND COLD EXPOSURE. PER EMS PATIENT OD ON TRAZADONE YESTERDAY, UNKNOWN TIME AND WAS SEEN PASSED OUT UNDER A TREE BY A BYSTANDER. SAME BYSTANDER SAW PATIENT UNDER THE SAME TREE THIS MORNING AND CALLED EMS. EMS UNABLE TO GET TEMP EN ROUTE, 18 GAUGE IV STARTED LEFT AC EN ROUTE, O2 APPLIED AT 5 LPM NC,VERSED AND WARMING FLUIDS STARTED EN ROUTE. PATIENT SHIVERING UNCONTROLLABLY, BEAR HUGGER PLACED ON PATIENT, O2 SATURATION 99% ON 3 LPM NC. RECTAL TEMP OF 95.7 F. PATIENT CONNECTED TO MONITOR, VSS. PATIENT ADMITS TO OD'ING ON 250 TRAZADONE PILLS, 300 GABAPENTIN PILLS, AND 300 VISTERAL PILLS YESTERDAY, UNKNOWN DOSAGES OF PILLS. ERMD AT BEDSIDE FOR EVALUATION. Addendum: 12/15/20 at 0846 by [email or web address] PATIENT REPORTS PAIN IN HIS LEFT LEG, STATES "I THINK I FELL."
[2020-12-15 08:34] LABS: BASOPHILS % (AUTO) 0 % (0-1); EOSINOPHILS % (AUTO) 0 % (1-7); LYMPHOCYTES % (AUTO) 9 % (22-44); MEAN CORPUSCULAR HEMOGLOBIN 30.5 pg (27.5-34.5); MEAN CORPUSCULAR HGB CONC 33.9 g/dL (33.2-36.2); MEAN PLATELET VOLUME 7.5 fL (7.4-10.4); MONOCYTES % (AUTO) 5 % (2-9); NEUTROPHILS % (AUTO) 86 % (42-75); PLATELET COUNT 238 x10^3/uL (130-400); RED BLOOD COUNT 5.39 x10^6/uL (4.38-5.82); RED CELL DISTRIBUTION WIDTH 14.9 % (9.4-14.8)
--- NOTE | 2020-12-15 08:34 | NUR ---
SITTER AT DOORWAY.
--- NOTE | 2020-12-15 08:34 | NUR ---
PATIENT BELONGINGS GATHERED AND PLACED IN BAG, LOCKED IN CABINET.
[2020-12-15 08:38] LABS: ALANINE AMINOTRANSFERASE 43 U/L (12-78); ALBUMIN 3.8 g/dL (3.4-5.0); ANION GAP 7 mmol/L (5-15); CALCIUM 8.9 mg/dL (8.5-10.1); CHLORIDE 105 mmol/L (98-107); SALICYLATE LEVEL 3.6 mg/dL (2.8-20.0)
--- NOTE | 2020-12-15 08:45 | NUR ---
URINE SAMPLE COLLECTED AND SENT TO LAB.
[2020-12-15 09:06] LABS: ALKALINE PHOSPHATASE 102 U/L (45-117); BILIRUBIN,TOTAL 0.6 mg/dL (0.2-1.0); CREATINE KINASE, TOTAL 2949 U/L (39-308); CREATININE 1.11 mg/dL (0.7-1.3); TOTAL PROTEIN 7.3 g/dL (6.4-8.2)
[2020-12-15 09:09] LABS: AMPHETAMINE SCREEN, URINE Positive (Negative); BARBITURATE SCREEN, URINE Negative (Negative); BENZODIAZEPINE SCREEN, URINE Negative (Negative); CANNABINOID SCREEN, URINE Negative (Negative); COCAINE SCREEN, URINE Negative (Negative); METHADONE SCREEN, URINE Negative (Negative); OPIATE SCREEN, URINE Negative (Negative)
[2020-12-15 09:12] LABS: MD SCAN
[2020-12-15] MEDS ORDERED: LACTATED RINGERS 1,000 ML IV SCH (09:30)
[2020-12-15] MEDS ORDERED: LACTATED RINGERS 1,000 ML IVBOLUS ONE (09:30)
--- NOTE | 2020-12-15 09:47 | NUR ---
PER DR RESENDIZ, SECOND LITER OF NORMAL SALINE NOT ADMINISTERED HE CHANGED IT TO LR.
--- NOTE | 2020-12-15 09:47 | NUR ---
REPORT RECEIVED FROM CHILO AKHTAR. [facility]
[2020-12-15 09:54] LABS: FREE T4 (FREE THYROXINE) 0.95 ng/dL (0.76-1.46)
[2020-12-15] MEDS ORDERED: LORazepam 0.5MG TABLET PO PRN (11:00)
[2020-12-15] MEDS ORDERED: ACETAMINOPHEN 325 MG TABLET PO PRN (11:00)
[2020-12-15] MEDS ORDERED: LORazepam 1MG TABLET PO PRN ×4 (11:00)
[2020-12-15] MEDS ORDERED: LORazepam 2 MG/ML, 1ML IV PRN ×4 (11:00)
[2020-12-15 11:11] VITALS: BP 107/70
[2020-12-15] MEDS: ENOXAPARIN 40 MG/0.4 ML SQ SCH (12:25)
[2020-12-15] MEDS: LACTATED RINGERS 1,000 ML IV SCH ×2 (12:27→18:42)
[2020-12-15] MEDS ORDERED: TRAZ-175 PO (12:50)
[2020-12-15 14:00] VITALS: BP 110/68
[2020-12-15] MEDS ORDERED: HYDR100C2 PO (16:19)
[2020-12-15] MEDS ORDERED: CARI3CAP PO (16:19)
[2020-12-15] MEDS: LORazepam 2 MG/ML, 1ML IV PRN ×2 (17:16→18:41)
[2020-12-15 20:50] VITALS: BP 99/63
[2020-12-16] MEDS: LACTATED RINGERS 1,000 ML IV SCH ×4 (00:35→22:25)
[2020-12-16] MEDS: LORazepam 2 MG/ML, 1ML IV PRN (00:36)
[2020-12-16 02:49] VITALS: BP 95/64
[2020-12-16 04:22] LABS: BASOPHILS % (AUTO) 0 % (0-1); EOSINOPHILS % (AUTO) 0 % (1-7); LYMPHOCYTES % (AUTO) 28 % (22-44); MEAN CORPUSCULAR HEMOGLOBIN 30.3 pg (27.5-34.5); MEAN CORPUSCULAR HGB CONC 33.6 g/dL (33.2-36.2); MEAN PLATELET VOLUME 7.3 fL (7.4-10.4); MONOCYTES % (AUTO) 6 % (2-9); NEUTROPHILS % (AUTO) 66 % (42-75); PLATELET COUNT 197 x10^3/uL (130-400); RED BLOOD COUNT 4.38 x10^6/uL (4.38-5.82); RED CELL DISTRIBUTION WIDTH 14.5 % (9.4-14.8)
[2020-12-16 04:26] LABS: MD NO
[2020-12-16 04:28] LABS: ALBUMIN 2.8 g/dL (3.4-5.0); ANION GAP 4 mmol/L (5-15); CALCIUM 8.1 mg/dL (8.5-10.1); CHLORIDE 108 mmol/L (98-107)
[2020-12-16 04:45] LABS: ALANINE AMINOTRANSFERASE 48 U/L (12-78); ALKALINE PHOSPHATASE 67 U/L (45-117); BILIRUBIN,TOTAL 0.8 mg/dL (0.2-1.0); CREATINE KINASE, TOTAL 3091 U/L (39-308); CREATININE 0.92 mg/dL (0.7-1.3); TOTAL PROTEIN 5.6 g/dL (6.4-8.2)
[2020-12-16 07:57] VITALS: BP 101/66
[2020-12-16] MEDS: FOLIC ACID 1 MG TABLET PO SCH (08:23)
[2020-12-16] MEDS: MULTIVITAMINS/MINERALS TABLET PO SCH (08:23)
[2020-12-16] MEDS: THIAMINE 200 MG in SODIUM CHLORIDE 0.9% 50 ML IV SCH (09:23)
[2020-12-16] MEDS: ENOXAPARIN 40 MG/0.4 ML SQ SCH (13:08)
[2020-12-16 13:17] VITALS: BP 109/68
[2020-12-16 20:12] VITALS: BP 107/67
[2020-12-17 01:49] VITALS: BP 105/65
[2020-12-17 04:33] LABS: BASOPHILS % (AUTO) 0 % (0-1); EOSINOPHILS % (AUTO) 1 % (1-7); LYMPHOCYTES % (AUTO) 37 % (22-44); MEAN CORPUSCULAR HEMOGLOBIN 30.4 pg (27.5-34.5); MEAN CORPUSCULAR HGB CONC 33.6 g/dL (33.2-36.2); MEAN PLATELET VOLUME 7.3 fL (7.4-10.4); MONOCYTES % (AUTO) 7 % (2-9); NEUTROPHILS % (AUTO) 53 % (42-75); PLATELET COUNT 186 x10^3/uL (130-400); RED BLOOD COUNT 4.32 x10^6/uL (4.38-5.82); RED CELL DISTRIBUTION WIDTH 14.2 % (9.4-14.8)
[2020-12-17 04:41] LABS: MD NO
[2020-12-17 04:50] LABS: ALANINE AMINOTRANSFERASE 43 U/L (12-78); ALBUMIN 2.7 g/dL (3.4-5.0); ANION GAP 7 mmol/L (5-15); CALCIUM 8.3 mg/dL (8.5-10.1); CHLORIDE 106 mmol/L (98-107)
[2020-12-17 05:04] LABS: ALKALINE PHOSPHATASE 67 U/L (45-117); BILIRUBIN,TOTAL 0.5 mg/dL (0.2-1.0); CREATINE KINASE, TOTAL 1584 U/L (39-308); TOTAL PROTEIN 5.4 g/dL (6.4-8.2)
[2020-12-17] MEDS: LACTATED RINGERS 1,000 ML IV SCH (05:04)
[2020-12-17 06:53] VITALS: BP 105/67
[2020-12-17] MEDS: MULTIVITAMINS/MINERALS TABLET PO SCH (07:51)
[2020-12-17] MEDS: THIAMINE 200 MG in SODIUM CHLORIDE 0.9% 50 ML IV SCH (07:51)
[2020-12-17] MEDS: FOLIC ACID 1 MG TABLET PO SCH (07:51)
[2020-12-17] MEDS ORDERED: THIAMINE 100 MG in DEXTROSE 5% 50 ML IVPB SCH (09:00)
[2020-12-17 12:21] VITALS: BP 114/70
[2020-12-17] MEDS: ENOXAPARIN 40 MG/0.4 ML SQ SCH (14:32)
[2020-12-17 19:55] VITALS: BP 123/75
[2020-12-18 02:07] VITALS: BP 124/74
[2020-12-18 05:17] LABS: BASOPHILS % (AUTO) 0 % (0-1); EOSINOPHILS % (AUTO) 2 % (1-7); LYMPHOCYTES % (AUTO) 38 % (22-44); MEAN CORPUSCULAR HEMOGLOBIN 30.5 pg (27.5-34.5); MEAN CORPUSCULAR HGB CONC 34.5 g/dL (33.2-36.2); MEAN PLATELET VOLUME 7.3 fL (7.4-10.4); MONOCYTES % (AUTO) 8 % (2-9); NEUTROPHILS % (AUTO) 52 % (42-75); PLATELET COUNT 218 x10^3/uL (130-400); RED BLOOD COUNT 4.47 x10^6/uL (4.38-5.82); RED CELL DISTRIBUTION WIDTH 13.8 % (9.4-14.8)
[2020-12-18 05:25] LABS: ALBUMIN 3.1 g/dL (3.4-5.0); ANION GAP 6 mmol/L (5-15); CALCIUM 8.5 mg/dL (8.5-10.1); CHLORIDE 107 mmol/L (98-107)
[2020-12-18 05:28] LABS: MD NO
[2020-12-18 05:29] LABS: ALANINE AMINOTRANSFERASE 48 U/L (12-78); ALKALINE PHOSPHATASE 69 U/L (45-117); BILIRUBIN,TOTAL 0.6 mg/dL (0.2-1.0); TOTAL PROTEIN 6.4 g/dL (6.4-8.2)
[2020-12-18 06:47] VITALS: BP 115/73
[2020-12-18] MEDS: MULTIVITAMINS/MINERALS TABLET PO SCH (08:59)
[2020-12-18] MEDS: FOLIC ACID 1 MG TABLET PO SCH (08:59)
[2020-12-18] MEDS: THIAMINE 200 MG in SODIUM CHLORIDE 0.9% 50 ML IV SCH (08:59)
[2020-12-18] MEDS ORDERED: LORazepam 1MG TABLET PO ONE (10:30)
[2020-12-18 12:12] VITALS: BP 119/78
[2020-12-18] MEDS: ENOXAPARIN 40 MG/0.4 ML SQ SCH (13:00)
== END 2020-12-18 16:54 | DRG 917 ==
LOC: ED 08:40 → 4WST 11:26
PROVIDERS: ADMIT Family Medicine; ATTEND Family Medicine
DX: T43.212A Poisoning by selective serotonin and norepinephrine reuptake inhibitors, intentional self-harm, initial encounter (principal); J96.01 Acute respiratory failure with hypoxia; G92 Toxic encephalopathy; F10.230 Alcohol dependence with withdrawal, uncomplicated; F33.2 Major depressive disorder, recurrent severe without psychotic features; M62.82 Rhabdomyolysis; F15.10 Other stimulant abuse, uncomplicated; F41.9 Anxiety disorder, unspecified; Z20.822 Contact with and (suspected) exposure to COVID-19; M79.605 Pain in left leg; G62.9 Polyneuropathy, unspecified; F42.9 Obsessive-compulsive disorder, unspecified; F41.1 Generalized anxiety disorder; R68.0 Hypothermia, not associated with low environmental temperature; Z87.891 Personal history of nicotine dependence; Z91.5 Personal history of self-harm; Z82.49 Family history of ischemic heart disease and other diseases of the circulatory system; Y92.89 Other specified places as the place of occurrence of the external cause
CPT/HCPCS: 36415; 72170; 80053; 80299; 80307; 80320; 80329; 82550; 83735; 84439; 84443; 85025; 87426; 93005; 96360; 99285; G0378; J1650; J3411; G0480; J2060; J7030; J7120

== ENCOUNTER 2020-12-27 10:58 | Inpatient (IN) | payer MEDICAID ==
[~2020-12-27] VITALS: Ht 190.5 cm; Wt 89.4 kg
[~2020-12-27 10:58] MED LIST changes: +ACAM333T7 PO; +CARI3CAP PO; +GABA-826 PO; +HYDR100C2 PO; +NICO-587 TD; +TRAZ-175 PO; +VENL75CA6 PO
[2020-12-27] MEDS ORDERED: SODIUM CHLORIDE 0.9% 1,000ML IVBOLUS ONE ×2 (11:30→13:00)
--- NOTE | 2020-12-27 11:36 | NUR ---
TASK RN: 2 BLOOD CULTURES/LACTATE AND FULL SET OF LABS DRAWN PIV PLACED REPORT TO NAVEEN WOO
[2020-12-27 11:41] LABS: BASOPHILS % (AUTO) 0 % (0-1); EOSINOPHILS % (AUTO) 0 % (1-7); LYMPHOCYTES % (AUTO) 8 % (22-44); MEAN CORPUSCULAR HEMOGLOBIN 29.8 pg (27.5-34.5); MEAN CORPUSCULAR HGB CONC 33.9 g/dL (33.2-36.2); MEAN PLATELET VOLUME 7.3 fL (7.4-10.4); MONOCYTES % (AUTO) 6 % (2-9); NEUTROPHILS % (AUTO) 85 % (42-75); PLATELET COUNT 369 x10^3/uL (130-400); RED BLOOD COUNT 4.27 x10^6/uL (4.38-5.82); RED CELL DISTRIBUTION WIDTH 14.6 % (9.4-14.8)
[2020-12-27] MEDS ORDERED: PROMETHAZINE 25 MG/ML, 1ML ONE (11:50)
[2020-12-27] MEDS ORDERED: MORPHINE SULFATE 4 MG/ML, 1ML ONE (11:50)
[2020-12-27] MEDS ORDERED: PIPERACILLIN/TAZO/PMX 3.375GM 50 ML ONE (11:50)
[2020-12-27 11:52] LABS: CHLORIDE 104 mmol/L (98-107)
[2020-12-27 11:55] LABS: ALBUMIN 2.8 g/dL (3.4-5.0); ANION GAP 9 mmol/L (5-15); CREATININE 1.05 mg/dL (0.7-1.3)
[2020-12-27] MEDS: MORPHINE SULFATE 4 MG/ML, 1ML IVPush PRN ×3 (11:56→22:14)
[2020-12-27] MEDS ORDERED: PIPERACILLIN/TAZO/PMX 3.375GM 50 ML IVPB ONE (12:00)
[2020-12-27] MEDS ORDERED: VANCOMYCIN PER PHARMACY MC ONE (12:00)
[2020-12-27] MEDS ORDERED: PROMETHAZINE 25 MG/ML, 1ML IM ONE (12:00)
[2020-12-27 12:05] LABS: MD SCAN
--- NOTE | 2020-12-27 12:17 | NUR ---
TASK RN: TO CT SCAN
[2020-12-27] MEDS ORDERED: VANCOMYCIN 2,200 MG in SODIUM CHLORIDE 0.9% 500 ML IV ONE (12:30)
[2020-12-27] MEDS ORDERED: OMNIPAQUE 350 MG/ML, 100ML BOTTLE ONE (12:31)
--- NOTE | 2020-12-27 13:00 | NUR ---
dr rider spoke with dr wheeler
--- NOTE | 2020-12-27 13:49 | NUR ---
REPORT TO CHILO PIKE
[2020-12-27] MEDS ORDERED: SENNA/DOCUSATE TABLET PO PRN (14:00)
[2020-12-27] MEDS ORDERED: VANCOMYCIN PER PHARMACY MC PRN (14:00)
[2020-12-27] MEDS ORDERED: POLYETHYLENE GLYCOL 17 GM PACKET PO PRN (14:00)
[2020-12-27] MEDS ORDERED: ONDANSETRON ODT 4 MG PO PRN (14:00)
[2020-12-27] MEDS ORDERED: LACTATED RINGERS 1,000 ML IV SCH (14:00)
--- NOTE | 2020-12-27 14:14 | NUR ---
REPORT TO CHILO HANLEY
--- NOTE | 2020-12-27 14:17 | NUR ---
800 MG GABAPENTIN 4X/DAY 100 MG TRAZADONE 3X/DAY 10 MG YU REYNA
[2020-12-27] MEDS ORDERED: FENTANYL PF 100 MCG/2ML ONE ×4 (14:40→16:43)
[2020-12-27] MEDS ORDERED: ROCURONIUM 10MG/ML,5ML ONE (14:42)
[2020-12-27] MEDS ORDERED: BUPIVACAINE/PF 0.5% ONE (14:43)
[2020-12-27] MEDS ORDERED: EPINEPHRINE 1 MG/ML, 1ML ONE (14:43)
[2020-12-27] MEDS ORDERED: CHLORHEXIDINE 15 ML UDC ONE (14:44)
[2020-12-27] MEDS ORDERED: PROPOFOL 10 MG/ML, 20ML ONE ×2 (14:49→15:22)
[2020-12-27] MEDS ORDERED: SUCCINYLCHOLINE 20 MG/ML, 10ML ONE (14:49)
[2020-12-27] MEDS ORDERED: EPHEDRINE 50 MG/ML, 1ML ONE (15:20)
[2020-12-27] MEDS ORDERED: ONDANSETRON 2MG/ML, 2ML ONE (15:27)
[2020-12-27] MEDS ORDERED: DEXAMETHASONE 4 MG/ML, 5ML ONE (15:27)
[2020-12-27] MEDS ORDERED: DAKIN'S SOLUTION 1/4 STRENGTH 1,000 ML IRRIG SOLN EXT ONE (16:00)
[2020-12-27] MEDS: GABAPENTIN 100 MG CAPSULE PO SCH ×2 (16:00→22:23)
[2020-12-27] MEDS: FENTANYL PF 100 MCG/2ML IV PRN ×2 (16:40→16:50)
[2020-12-27] MEDS ORDERED: ACETAMINOPHEN 650 MG/20.3 ML UDC ONE (16:43)
[2020-12-27] MEDS ORDERED: KETOROLAC 30 MG/1 ML ONE (16:43)
[2020-12-27] MEDS ORDERED: OXYcodone 5 MG/5 ML ORAL.SOL UDC ONE (16:43)
[2020-12-27] MEDS ORDERED: KETOROLAC 30 MG/1 ML IM PRN (17:00)
[2020-12-27] MEDS ORDERED: MEPERIDINE/PF 25MG/0.5ML IVPush PRN (17:00)
[2020-12-27] MEDS ORDERED: OXYcodone 5 MG/5 ML ORAL.SOL UDC PO PRN (17:00)
[2020-12-27] MEDS ORDERED: ONDANSETRON 2MG/ML, 2ML IVPush PRN (17:00)
[2020-12-27] MEDS ORDERED: LABETALOL 5MG/ML, 20ML IV PRN (17:00)
[2020-12-27] MEDS ORDERED: PROMETHAZINE 25 MG/ML, 1ML IVPush PRN (17:00)
[2020-12-27] MEDS ORDERED: ACETAMINOPHEN 325 MG TABLET PO PRN (17:00)
[2020-12-27] MEDS ORDERED: hydrALAzine 20 MG/ML, 1ML IV PRN (17:00)
[2020-12-27] MEDS ORDERED: HYDROmorphone 1 MG/ML, 1ML INJ ONE (17:10)
[2020-12-27] MEDS: HYDROmorphone 1 MG/ML, 1ML INJ IVPush PRN ×2 (17:15→17:30)
[2020-12-27] MEDS ORDERED: KETOROLAC 30 MG/1 ML IVPush ONE (17:30)
[2020-12-27] MEDS ORDERED: PHARMACOKINETIC MONITORING MC PRN (17:30)
[2020-12-27 18:32] VITALS: BP 103/63
[2020-12-27 19:10] VITALS: BP 96/57
[2020-12-27] MEDS: PIPERACILLIN/TAZO/PMX 3.375GM 50 ML IV SCH (20:28)
[2020-12-27] MEDS: morphine SULFATE 10 MG/ML, 1ML IVPush PRN (20:35)
[2020-12-27] MEDS: D5%-0.45NACL+KCL 20MEQ 1,000 ML IV SCH (22:23)
[2020-12-27] MEDS: HYDROcodone/APAP 5/325 TABLET PO PRN (22:46)
[2020-12-28] VITALS (9 sets, daily range): BP systolic 79–99; BP diastolic 50–62
[2020-12-28] MEDS: VANCOMYCIN 1,700 MG in SODIUM CHLORIDE 0.9% 250 ML IV SCH ×2 (01:52→14:33)
[2020-12-28] MEDS: PIPERACILLIN/TAZO/PMX 3.375GM 50 ML IV SCH ×4 (03:23→23:31)
[2020-12-28 05:17] LABS: BASOPHILS % (AUTO) 0 % (0-1); EOSINOPHILS % (AUTO) 0 % (1-7); LYMPHOCYTES % (AUTO) 15 % (22-44); MEAN CORPUSCULAR HEMOGLOBIN 30.7 pg (27.5-34.5); MEAN CORPUSCULAR HGB CONC 34.6 g/dL (33.2-36.2); MEAN PLATELET VOLUME 7.3 fL (7.4-10.4); MONOCYTES % (AUTO) 6 % (2-9); NEUTROPHILS % (AUTO) 79 % (42-75); PLATELET COUNT 317 x10^3/uL (130-400); RED BLOOD COUNT 3.52 x10^6/uL (4.38-5.82); RED CELL DISTRIBUTION WIDTH 14.5 % (9.4-14.8)
[2020-12-28 05:21] LABS: MD NO
[2020-12-28 05:27] LABS: ALBUMIN 2.3 g/dL (3.4-5.0); ANION GAP 6 mmol/L (5-15); CALCIUM 8.4 mg/dL (8.5-10.1); CHLORIDE 107 mmol/L (98-107)
[2020-12-28 05:28] LABS: CREATININE 0.84 mg/dL (0.7-1.3)
[2020-12-28] MEDS: HYDROcodone/APAP 5/325 TABLET PO PRN ×4 (05:39→20:08)
[2020-12-28] MEDS: GABAPENTIN 100 MG CAPSULE PO SCH ×4 (06:26→20:08)
[2020-12-28] MEDS: ENOXAPARIN 40 MG/0.4 ML SQ SCH (09:14)
[2020-12-28] MEDS: VENLAFAXINE 75 MG CAP ER PO SCH (09:15)
[2020-12-28] MEDS: FOLIC ACID 1 MG TABLET PO SCH (09:15)
[2020-12-28] MEDS: morphine SULFATE 10 MG/ML, 1ML IVPush PRN ×2 (09:31→11:37)
[2020-12-28] MEDS ORDERED: SODIUM CHLORIDE 0.9% 1,000 ML IV ONE (10:00)
[2020-12-28] MEDS: IBUPROFEN 600 MG TABLET PO PRN ×2 (10:31→18:05)
[2020-12-28] MEDS: LORazepam 1MG TABLET PO PRN ×2 (11:16→22:10)
[2020-12-28] MEDS ORDERED: DAKIN'S SOLUTION 1/4 STRENGTH 1,000 ML IRRIG SOLN EXT SCH (12:00)
[2020-12-28] MEDS: D5%-0.45NACL+KCL 20MEQ 1,000 ML IV SCH (12:26)
[2020-12-28] MEDS ORDERED: HYDROXYZINE PAMOATE 50MG CAP PO PRN (15:00)
[2020-12-28] MEDS ORDERED: TRAZODONE 100MG TABLET PO PRN (21:00)
[2020-12-29 01:49] VITALS: BP 94/61
[2020-12-29] MEDS: VANCOMYCIN 1,700 MG in SODIUM CHLORIDE 0.9% 250 ML IV SCH ×2 (01:52→13:30)
[2020-12-29] MEDS: HYDROcodone/APAP 5/325 TABLET PO PRN ×3 (02:04→14:12)
[2020-12-29] MEDS: D5%-0.45NACL+KCL 20MEQ 1,000 ML IV SCH (04:13)
[2020-12-29] MEDS: PIPERACILLIN/TAZO/PMX 3.375GM 50 ML IV SCH ×4 (05:06→23:33)
[2020-12-29] MEDS: GABAPENTIN 100 MG CAPSULE PO SCH ×4 (05:06→21:27)
[2020-12-29 05:43] LABS: BASOPHILS % (AUTO) 1 % (0-1); EOSINOPHILS % (AUTO) 1 % (1-7); LYMPHOCYTES % (AUTO) 47 % (22-44); MEAN CORPUSCULAR HEMOGLOBIN 30.5 pg (27.5-34.5); MEAN CORPUSCULAR HGB CONC 33.8 g/dL (33.2-36.2); MEAN PLATELET VOLUME 7.2 fL (7.4-10.4); MONOCYTES % (AUTO) 8 % (2-9); NEUTROPHILS % (AUTO) 44 % (42-75); PLATELET COUNT 361 x10^3/uL (130-400); RED BLOOD COUNT 3.49 x10^6/uL (4.38-5.82); RED CELL DISTRIBUTION WIDTH 14.7 % (9.4-14.8)
[2020-12-29 05:46] LABS: ALANINE AMINOTRANSFERASE 92 U/L (12-78); ALBUMIN 2.3 g/dL (3.4-5.0); ANION GAP 3 mmol/L (5-15); CALCIUM 8.3 mg/dL (8.5-10.1); CHLORIDE 110 mmol/L (98-107)
[2020-12-29 05:49] LABS: ALKALINE PHOSPHATASE 70 U/L (45-117); BILIRUBIN,TOTAL 0.2 mg/dL (0.2-1.0); CREATININE 0.82 mg/dL (0.7-1.3); TOTAL PROTEIN 5.2 g/dL (6.4-8.2)
[2020-12-29 06:22] LABS: MD SCAN
[2020-12-29 06:52] VITALS: BP 108/75
[2020-12-29] MEDS: LORazepam 1MG TABLET PO PRN ×2 (07:47→16:47)
[2020-12-29] MEDS: VENLAFAXINE 75 MG CAP ER PO SCH (07:47)
[2020-12-29] MEDS: FOLIC ACID 1 MG TABLET PO SCH (07:48)
[2020-12-29] MEDS ORDERED: CHLORHEXIDINE 15 ML UDC ONE (09:49)
[2020-12-29] MEDS ORDERED: FENTANYL PF 250 MCG/5ML ONE (09:51)
[2020-12-29] MEDS ORDERED: CHLORHEXIDINE 15 ML UDC MM ONE (10:00)
[2020-12-29] MEDS ORDERED: MEPERIDINE/PF 25MG/0.5ML IVPush PRN (10:00)
[2020-12-29] MEDS ORDERED: HYDROmorphone 1 MG/ML, 1ML INJ IVPush PRN (10:00)
[2020-12-29] MEDS ORDERED: MIDAZOLAM 1 MG/ML, 2ML IV PRN (10:00)
[2020-12-29] MEDS ORDERED: OXYcodone 5 MG/5 ML ORAL.SOL UDC PO PRN (10:00)
[2020-12-29] MEDS ORDERED: ACETAMINOPHEN 325 MG TABLET PO PRN (10:00)
[2020-12-29] MEDS ORDERED: LABETALOL 5MG/ML, 20ML IV PRN (10:00)
[2020-12-29] MEDS ORDERED: hydrALAzine 20 MG/ML, 1ML IV PRN (10:00)
[2020-12-29] MEDS ORDERED: BUPIVACAINE/PF 0.25% ONE (10:31)
[2020-12-29] MEDS ORDERED: EPINEPHRINE 1 MG/ML, 1ML ONE (10:31)
[2020-12-29] MEDS ORDERED: BUPIVACAINE/PF 0.5% ONE (10:31)
[2020-12-29] MEDS ORDERED: ROCURONIUM 10MG/ML,5ML ONE (10:38)
[2020-12-29] MEDS ORDERED: PROPOFOL 10 MG/ML, 20ML ONE (10:38)
[2020-12-29] MEDS ORDERED: DEXAMETHASONE 4 MG/ML, 5ML ONE (10:40)
[2020-12-29] MEDS ORDERED: ONDANSETRON 2MG/ML, 2ML ONE (10:40)
[2020-12-29] MEDS ORDERED: OXYcodone 5 MG/5 ML ORAL.SOL UDC ONE (11:39)
[2020-12-29] MEDS ORDERED: FENTANYL PF 100 MCG/2ML ONE (11:39)
[2020-12-29] MEDS: FENTANYL PF 100 MCG/2ML IV PRN ×2 (11:44→11:58)
[2020-12-29 12:54] VITALS: BP 101/56
[2020-12-29] MEDS: OXYcodone/APAP 5/325MG TABLET PO PRN ×2 (18:25→23:33)
[2020-12-29 20:00] VITALS: BP 109/72
[2020-12-30 01:17] VITALS: BP 103/65
[2020-12-30] MEDS: ZOLPIDEM 10MG TABLET PO PRN ×2 (01:43→20:55)
[2020-12-30] MEDS: VANCOMYCIN 1,700 MG in SODIUM CHLORIDE 0.9% 250 ML IV SCH (01:46)
[2020-12-30] MEDS: OXYcodone/APAP 5/325MG TABLET PO PRN ×4 (05:18→19:22)
[2020-12-30] MEDS: PIPERACILLIN/TAZO/PMX 3.375GM 50 ML IV SCH ×4 (05:18→22:27)
[2020-12-30 06:05] LABS: BASOPHILS % (AUTO) 1 % (0-1); EOSINOPHILS % (AUTO) 1 % (1-7); LYMPHOCYTES % (AUTO) 41 % (22-44); MEAN CORPUSCULAR HGB CONC 33.6 g/dL (33.2-36.2); MEAN PLATELET VOLUME 7.1 fL (7.4-10.4); MONOCYTES % (AUTO) 7 % (2-9); NEUTROPHILS % (AUTO) 50 % (42-75); PLATELET COUNT 484 x10^3/uL (130-400); RED BLOOD COUNT 4.27 x10^6/uL (4.38-5.82); RED CELL DISTRIBUTION WIDTH 14.4 % (9.4-14.8)
[2020-12-30 06:15] LABS: MD NO
[2020-12-30 06:19] LABS: ALBUMIN 2.5 g/dL (3.4-5.0); ANION GAP 4 mmol/L (5-15); CALCIUM 8.5 mg/dL (8.5-10.1); CHLORIDE 101 mmol/L (98-107)
[2020-12-30 06:22] LABS: ALANINE AMINOTRANSFERASE 78 U/L (12-78); ALKALINE PHOSPHATASE 69 U/L (45-117); BILIRUBIN,TOTAL 0.3 mg/dL (0.2-1.0)
[2020-12-30] MEDS: GABAPENTIN 100 MG CAPSULE PO SCH ×4 (06:29→19:22)
[2020-12-30 06:46] VITALS: BP 113/74
[2020-12-30] MEDS: FOLIC ACID 1 MG TABLET PO SCH (07:29)
[2020-12-30] MEDS: VENLAFAXINE 75 MG CAP ER PO SCH (07:30)
[2020-12-30] MEDS: ENOXAPARIN 40 MG/0.4 ML SQ SCH (07:30)
[2020-12-30] MEDS: LORazepam 1MG TABLET PO PRN ×3 (07:30→20:55)
[2020-12-30] MEDS: SENNA/DOCUSATE TABLET PO SCH (10:52)
[2020-12-30 13:06] VITALS: BP 114/76
[2020-12-30] MEDS: ONDANSETRON 2MG/ML, 2ML IVPush PRN (14:45)
[2020-12-30 20:00] VITALS: BP 118/77
[2020-12-31] MEDS: OXYcodone/APAP 5/325MG TABLET PO PRN ×3 (00:51→09:27)
[2020-12-31 00:53] VITALS: BP 110/74
[2020-12-31] MEDS: GABAPENTIN 100 MG CAPSULE PO SCH ×4 (05:05→20:22)
[2020-12-31] MEDS: PIPERACILLIN/TAZO/PMX 3.375GM 50 ML IV SCH ×4 (05:06→23:41)
[2020-12-31 06:38] VITALS: BP 114/66
[2020-12-31] MEDS: FOLIC ACID 1 MG TABLET PO SCH (07:36)
[2020-12-31] MEDS: VENLAFAXINE 75 MG CAP ER PO SCH (07:36)
[2020-12-31] MEDS: LORazepam 1MG TABLET PO PRN ×3 (07:37→23:40)
[2020-12-31] MEDS: SENNA/DOCUSATE TABLET PO SCH (07:37)
[2020-12-31] MEDS: ENOXAPARIN 40 MG/0.4 ML SQ SCH (07:38)
[2020-12-31 13:12] VITALS: BP 117/79
[2020-12-31] MEDS: OXYcodone/APAP 7.5/325MG TABLET PO PRN ×3 (13:43→22:37)
[2020-12-31 19:12] VITALS: BP 118/79
[2020-12-31] MEDS: ZOLPIDEM 10MG TABLET PO PRN (20:20)
[2021-01-01 02:09] VITALS: BP 104/66
[2021-01-01] MEDS: OXYcodone/APAP 7.5/325MG TABLET PO PRN ×4 (02:47→19:43)
[2021-01-01 05:29] LABS: BASOPHILS % (AUTO) 1 % (0-1); EOSINOPHILS % (AUTO) 2 % (1-7); LYMPHOCYTES % (AUTO) 35 % (22-44); MEAN CORPUSCULAR HEMOGLOBIN 30.2 pg (27.5-34.5); MEAN CORPUSCULAR HGB CONC 34.1 g/dL (33.2-36.2); MEAN PLATELET VOLUME 6.9 fL (7.4-10.4); MONOCYTES % (AUTO) 7 % (2-9); NEUTROPHILS % (AUTO) 56 % (42-75); PLATELET COUNT 561 x10^3/uL (130-400); RED BLOOD COUNT 4.57 x10^6/uL (4.38-5.82); RED CELL DISTRIBUTION WIDTH 14.2 % (9.4-14.8)
[2021-01-01 05:36] LABS: HCT (SEDRATE) 41.1 % (39.2-51.8)
[2021-01-01] MEDS: PIPERACILLIN/TAZO/PMX 3.375GM 50 ML IV SCH ×4 (05:38→23:37)
[2021-01-01 05:41] LABS: ANION GAP 3 mmol/L (5-15); CALCIUM 9.3 mg/dL (8.5-10.1); CHLORIDE 106 mmol/L (98-107)
[2021-01-01 05:43] LABS: MD NO
[2021-01-01 05:48] LABS: ALANINE AMINOTRANSFERASE 92 U/L (12-78); ALKALINE PHOSPHATASE 67 U/L (45-117); BILIRUBIN,TOTAL 0.3 mg/dL (0.2-1.0); CREATININE 1.15 mg/dL (0.7-1.3); TOTAL PROTEIN 6.2 g/dL (6.4-8.2)
[2021-01-01] MEDS: GABAPENTIN 100 MG CAPSULE PO SCH ×4 (06:21→19:42)
[2021-01-01 06:46] VITALS: BP 103/72
[2021-01-01] MEDS ORDERED: SENNA/DOCUSATE TABLET PO PRN (07:00)
[2021-01-01] MEDS ORDERED: SODIUM ZIRCONIUM CYCLOSILICATE 5 GM PO ONE (07:00)
[2021-01-01] MEDS: SENNA/DOCUSATE TABLET PO SCH (09:39)
[2021-01-01] MEDS: FOLIC ACID 1 MG TABLET PO SCH (09:40)
[2021-01-01] MEDS: VENLAFAXINE 75 MG CAP ER PO SCH (09:40)
[2021-01-01] MEDS: ENOXAPARIN 40 MG/0.4 ML SQ SCH (09:41)
[2021-01-01] MEDS: ONDANSETRON 2MG/ML, 2ML IVPush PRN (09:45)
[2021-01-01] MEDS: LORazepam 1MG TABLET PO PRN ×2 (10:34→17:19)
[2021-01-01] MEDS: morphine SULFATE 10 MG/ML, 1ML IVPush PRN ×3 (10:53→18:34)
[2021-01-01 12:53] VITALS: BP 96/59
[2021-01-01] MEDS: SODIUM CHLORIDE 0.9% 1,000 ML IV SCH (18:25)
[2021-01-01 19:07] VITALS: BP 100/67
[2021-01-01] MEDS: ZOLPIDEM 10MG TABLET PO PRN (23:41)
[2021-01-02 00:44] VITALS: BP 83/57
[2021-01-02 01:17] VITALS: BP 93/56
[2021-01-02] MEDS: OXYcodone/APAP 7.5/325MG TABLET PO PRN ×5 (01:28→20:17)
[2021-01-02 05:33] LABS: BASOPHILS % (AUTO) 1 % (0-1); EOSINOPHILS % (AUTO) 2 % (1-7); LYMPHOCYTES % (AUTO) 45 % (22-44); MEAN CORPUSCULAR HEMOGLOBIN 30.5 pg (27.5-34.5); MEAN CORPUSCULAR HGB CONC 34.1 g/dL (33.2-36.2); MEAN PLATELET VOLUME 6.9 fL (7.4-10.4); MONOCYTES % (AUTO) 8 % (2-9); NEUTROPHILS % (AUTO) 44 % (42-75); PLATELET COUNT 492 x10^3/uL (130-400); RED BLOOD COUNT 4.15 x10^6/uL (4.38-5.82); RED CELL DISTRIBUTION WIDTH 14.2 % (9.4-14.8)
[2021-01-02] MEDS: PIPERACILLIN/TAZO/PMX 3.375GM 50 ML IV SCH ×4 (05:37→23:37)
[2021-01-02] MEDS: SODIUM CHLORIDE 0.9% 1,000 ML IV SCH (05:38)
[2021-01-02 05:39] LABS: ANION GAP 2 mmol/L (5-15); CALCIUM 8.5 mg/dL (8.5-10.1); CHLORIDE 106 mmol/L (98-107)
[2021-01-02 05:40] LABS: CREATININE 1.03 mg/dL (0.7-1.3)
[2021-01-02] MEDS: GABAPENTIN 100 MG CAPSULE PO SCH ×4 (05:49→20:50)
[2021-01-02 06:12] LABS: MD SCAN
[2021-01-02 07:34] VITALS: BP 82/44
[2021-01-02 07:35] VITALS: BP 96/66
[2021-01-02] MEDS: VENLAFAXINE 75 MG CAP ER PO SCH (09:06)
[2021-01-02] MEDS: SENNA/DOCUSATE TABLET PO SCH (09:06)
[2021-01-02] MEDS: ENOXAPARIN 40 MG/0.4 ML SQ SCH (09:06)
[2021-01-02] MEDS: FOLIC ACID 1 MG TABLET PO SCH (09:06)
[2021-01-02] MEDS: LORazepam 1MG TABLET PO PRN ×2 (09:06→17:23)
[2021-01-02 13:08] VITALS: BP 97/62
[2021-01-02 19:31] VITALS: BP 107/69
[2021-01-02] MEDS: ZOLPIDEM 10MG TABLET PO PRN (22:04)
[2021-01-02] MEDS: ACETAMINOPHEN 325 MG TABLET PO PRN (22:07)
[2021-01-03 00:23] VITALS: BP 98/62
[2021-01-03] MEDS: OXYcodone/APAP 7.5/325MG TABLET PO PRN ×4 (03:21→19:47)
[2021-01-03] MEDS: GABAPENTIN 100 MG CAPSULE PO SCH ×4 (06:00→19:47)
[2021-01-03] MEDS: PIPERACILLIN/TAZO/PMX 3.375GM 50 ML IV SCH ×4 (06:01→23:33)
[2021-01-03 08:13] VITALS: BP 101/68
[2021-01-03] MEDS: ONDANSETRON 2MG/ML, 2ML IVPush PRN (09:11)
[2021-01-03] MEDS: FOLIC ACID 1 MG TABLET PO SCH (09:12)
[2021-01-03] MEDS: SENNA/DOCUSATE TABLET PO SCH (09:12)
[2021-01-03] MEDS: VENLAFAXINE 75 MG CAP ER PO SCH (09:13)
[2021-01-03] MEDS: ENOXAPARIN 40 MG/0.4 ML SQ SCH (09:15)
[2021-01-03] MEDS: LORazepam 1MG TABLET PO PRN ×2 (09:15→15:14)
[2021-01-03] MEDS: morphine SULFATE 10 MG/ML, 1ML IVPush PRN ×2 (10:16→17:32)
[2021-01-03 12:18] VITALS: BP 105/70
[2021-01-03 19:06] VITALS: BP 118/80
[2021-01-03] MEDS: ZOLPIDEM 10MG TABLET PO PRN (21:07)
[2021-01-04 00:34] VITALS: BP 103/63
[2021-01-04] MEDS: OXYcodone/APAP 7.5/325MG TABLET PO PRN ×5 (03:33→21:18)
[2021-01-04] MEDS: PIPERACILLIN/TAZO/PMX 3.375GM 50 ML IV SCH ×4 (05:47→23:07)
[2021-01-04] MEDS: GABAPENTIN 100 MG CAPSULE PO SCH ×4 (05:51→20:14)
[2021-01-04] MEDS: ACETAMINOPHEN 325 MG TABLET PO PRN (05:56)
[2021-01-04 07:25] VITALS: BP 114/67
[2021-01-04] MEDS: VENLAFAXINE 75 MG CAP ER PO SCH (08:28)
[2021-01-04] MEDS: LORazepam 1MG TABLET PO PRN ×2 (08:28→17:02)
[2021-01-04] MEDS: FOLIC ACID 1 MG TABLET PO SCH (08:28)
[2021-01-04] MEDS: ENOXAPARIN 40 MG/0.4 ML SQ SCH (08:28)
[2021-01-04] MEDS: SENNA/DOCUSATE TABLET PO SCH (08:29)
[2021-01-04] MEDS: morphine SULFATE 10 MG/ML, 1ML IVPush PRN (09:41)
[2021-01-04 14:01] VITALS: BP 95/59
[2021-01-04 18:51] VITALS: BP 123/77
[2021-01-04] MEDS: ZOLPIDEM 10MG TABLET PO PRN (20:14)
[2021-01-05 00:33] VITALS: BP 117/73
[2021-01-05] MEDS: OXYcodone/APAP 7.5/325MG TABLET PO PRN ×3 (02:21→14:18)
[2021-01-05] MEDS: PIPERACILLIN/TAZO/PMX 3.375GM 50 ML IV SCH ×2 (05:03→11:41)
[2021-01-05] MEDS: GABAPENTIN 100 MG CAPSULE PO SCH ×2 (05:03→10:14)
[2021-01-05 07:31] VITALS: BP 112/72
[2021-01-05] MEDS: FOLIC ACID 1 MG TABLET PO SCH (08:25)
[2021-01-05] MEDS: VENLAFAXINE 75 MG CAP ER PO SCH (08:25)
[2021-01-05] MEDS: SENNA/DOCUSATE TABLET PO SCH (08:28)
[2021-01-05] MEDS: LORazepam 1MG TABLET PO PRN ×2 (08:32→14:52)
[2021-01-05] MEDS: ENOXAPARIN 40 MG/0.4 ML SQ SCH (08:51)
[2021-01-05] MEDS: ONDANSETRON 2MG/ML, 2ML IVPush PRN (10:10)
[2021-01-05] MEDS: morphine SULFATE 10 MG/ML, 1ML IVPush PRN (10:35)
[2021-01-05] MEDS ORDERED: PIPE3.375 IV (12:24)
[2021-01-05] MEDS ORDERED: SENN-211 PO (12:24)
[2021-01-05] MEDS ORDERED: OXYC5TAB98 PO (12:24)
[2021-01-05] MEDS ORDERED: POLY17PO5 PO (12:24)
[2021-01-05] MEDS ORDERED: ENOX40SY4 SQ (12:24)
[2021-01-05] MEDS ORDERED: TRAZ-175 PO (12:37)
[2021-01-05] MEDS ORDERED: HYDR50CA2 PO (12:39)
[2021-01-05] MEDS ORDERED: ZOLP10TA PO (12:39)
[2021-01-05 13:55] VITALS: BP 126/75
== END 2021-01-05 16:19 | DRG 853 ==
LOC: ED 11:35 → 3N 13:02
PROVIDERS: ADMIT Family Medicine; ATTEND Internal Medicine
PROC: 8E09XY8 Suture Removal from Head and Neck Region (ICD-10-PCS; 2020-12-27)
PROC: 0QB10ZZ Excision of Sacrum, Open Approach (ICD-10-PCS; principal; 2020-12-27 14:30)
PROC: 0JB70ZZ Excision of Back Subcutaneous Tissue and Fascia, Open Approach (ICD-10-PCS; 2020-12-29)
DX: A41.9 Sepsis, unspecified organism (principal); M72.6 Necrotizing fasciitis; F33.2 Major depressive disorder, recurrent severe without psychotic features; L02.31 Cutaneous abscess of buttock; L03.317 Cellulitis of buttock; M62.82 Rhabdomyolysis; B95.61 Methicillin susceptible Staphylococcus aureus infection as the cause of diseases classified elsewhere; Z20.822 Contact with and (suspected) exposure to COVID-19; D63.8 Anemia in other chronic diseases classified elsewhere; F10.20 Alcohol dependence, uncomplicated; F15.10 Other stimulant abuse, uncomplicated; F41.1 Generalized anxiety disorder; F42.9 Obsessive-compulsive disorder, unspecified; G56.30 Lesion of radial nerve, unspecified upper limb; Z82.49 Family history of ischemic heart disease and other diseases of the circulatory system; Z91.5 Personal history of self-harm
CPT/HCPCS: 36415; 84145; 96365; 96372; 99285; S0020; 74174; 80048; 80053; 80202; 82040; 83605; 83735; 84100; 85025; 85651; 86140; 87015; 87040; 87070; 87075; 87076; 87077; 87102; 87116; 87186; 87205; 87206; 87635; 88305; G0378; J0171; J1100; J1170; J1650; J1885; J2405; J2543; J2550; J2704; J3010; J3370; Q0162; Q9967; J0330; J2270; J3480; J7030; J7040; J7050

== ENCOUNTER 2021-01-10 08:57 | Outpatient (CLI) | payer MEDICAID ==
[~2021-01-10 08:57] MED LIST changes: +ENOX40SY4 SQ; +HYDR50CA2 PO; +OXYC5TAB98 PO; +PIPE3.375 IV; +POLY17PO5 PO; +SENN-211 PO
== END 2021-01-10 23:59 | disposition home or self-care (01) ==
LOC: RAD 08:57
PROVIDERS: ATTEND Internal Medicine Geriatric Medicine
DX: A41.9 Sepsis, unspecified organism (principal); F41.1 Generalized anxiety disorder; F33.9 Major depressive disorder, recurrent, unspecified; F15.10 Other stimulant abuse, uncomplicated; D64.9 Anemia, unspecified; F10.20 Alcohol dependence, uncomplicated; Z79.891 Long term (current) use of opiate analgesic; Z79.899 Other long term (current) drug therapy
CPT/HCPCS: 36573; C1751

== ENCOUNTER 2021-02-15 11:47 | Emergency (ER) | payer MEDICAID ==
[~2021-02-15] VITALS: Ht 190.5 cm; Wt 87.7 kg
[2021-02-15 11:50] VITALS: BP 128/84
--- NOTE | 2021-02-15 12:12 | NUR ---
PT TO ROOM 6 W/ C/O LOWER BACK WOUND. PT WAS RECENTLY DC'D FROM [facility] FOR WOUND CARE. PT STATES "I KNOW HOW TO CLEAN IT AND TAKE CARE OF IT MYSELF I JUST RAN OUT OF SUPPLIES". PT RESTING ON GURALYCE. CHUYITAN. WARM BLANKET PROVIDED.
[2021-02-15] MEDS ORDERED: NEOSPORIN OINT. PKT 1 PACKET ONE (12:17)
--- NOTE | 2021-02-15 12:30 | NUR ---
WOUND CLEANSED AND PT PROVIDED W/ SUPPLIES FOR OUTPATIENT WOUND CARE. PT EDUCATED ON IMPORTANCE OF ESTABLISHING W/ PCP AND WOUND CARE CLINIC. PT VERBALIZES UNDERSTANDING.
== END 2021-02-15 12:55 | disposition home or self-care (01) ==
LOC: ED 12:00
DX: L02.212 Cutaneous abscess of back [any part, except buttock and flank] (principal); Z76.0 Encounter for issue of repeat prescription; Z48.00 Encounter for change or removal of nonsurgical wound dressing
CPT/HCPCS: 99282

== ENCOUNTER 2021-02-18 09:03 | Emergency (ER) | payer MEDICAID ==
[~2021-02-18] VITALS: Ht 190.5 cm; Wt 90.0 kg
[2021-02-18 09:18] VITALS: BP 136/74
--- NOTE | 2021-02-18 10:00 | NUR ---
PT TO ED REPORTS SI OFF MEDS AND IS HEARING VOICES CLOTHING REMOVED AND SECURED PT MOVED FROM ROOM 4 TO ROOM 2 SITTER MONITORING PT KARLI MARIN INTO SEE PT AT THIS TIME
[2021-02-18 10:18] LABS: BASOPHILS % (AUTO) 1 % (0-1); EOSINOPHILS % (AUTO) 19 % (1-7); LYMPHOCYTES % (AUTO) 21 % (22-44); MEAN CORPUSCULAR HEMOGLOBIN 29.1 pg (27.5-34.5); MEAN CORPUSCULAR HGB CONC 33.5 g/dL (33.2-36.2); MEAN PLATELET VOLUME 6.9 fL (7.4-10.4); MONOCYTES % (AUTO) 8 % (2-9); NEUTROPHILS % (AUTO) 52 % (42-75); PLATELET COUNT 400 x10^3/uL (130-400); RED BLOOD COUNT 4.66 x10^6/uL (4.38-5.82); RED CELL DISTRIBUTION WIDTH 15.3 % (9.4-14.8)
[2021-02-18 10:27] LABS: ALANINE AMINOTRANSFERASE 86 U/L (12-78); ALBUMIN 4.2 g/dL (3.4-5.0); ANION GAP 4 mmol/L (5-15); CALCIUM 8.8 mg/dL (8.5-10.1); CHLORIDE 108 mmol/L (98-107)
[2021-02-18 10:29] LABS: SALICYLATE LEVEL < 1.7 mg/dL (2.8-20.0)
[2021-02-18 10:30] LABS: ALKALINE PHOSPHATASE 105 U/L (45-117); BILIRUBIN,TOTAL 0.4 mg/dL (0.2-1.0); TOTAL PROTEIN 7.3 g/dL (6.4-8.2)
[2021-02-18 10:40] LABS: MD SCAN
[2021-02-18 11:06] LABS: MICROSCOPIC INDICATED
[2021-02-18 11:14] LABS: AMPHETAMINE SCREEN, URINE Negative (Negative); BARBITURATE SCREEN, URINE Negative (Negative); BENZODIAZEPINE SCREEN, URINE Negative (Negative); CANNABINOID SCREEN, URINE Negative (Negative); COCAINE SCREEN, URINE Negative (Negative); METHADONE SCREEN, URINE Negative (Negative); OPIATE SCREEN, URINE Negative (Negative)
--- NOTE | 2021-02-18 11:48 | NUR ---
WOUND ON THE BUTTOCKS CLEANED AND REDRESSEED
--- NOTE | 2021-02-18 12:11 | NUR ---
SAFETY DIET TRAY DELIVERED AT THIS TIME. SITTER OUSTIDE ROOM AND GARAGE DOORS DOWN FOR SAFETY. RESP EVEN AND UNLABORED NADN. NO FURTHER NEEDS AT THIS TIME.
[2021-02-18] MEDS ORDERED: OLANZAPINE 5 MG TABLET PO SCH (13:00)
--- NOTE | 2021-02-18 13:02 | NUR ---
REFERAL FAXED TO [facility], [facility], AND [facility]
[2021-02-18] MEDS ORDERED: OLANZAPINE 5 MG TABLET ONE (13:10)
--- NOTE | 2021-02-18 13:29 | NUR ---
REPORT TO FRANCIA AT [facility]. CONTINUE TO AWAIT ACCEPTANCE.
--- NOTE | 2021-02-18 13:34 | NUR ---
[facility] accepted pt per Dr. Anthony MARQUEZ rn
--- NOTE | 2021-02-18 13:41 | NUR ---
REPORT GIVEN TO ALMA NURSE AT [facility].
--- NOTE | 2021-02-18 14:04 | NUR ---
Spoke with Davis ELLIS. Per Davis unable to verifiy patient. Will set up transport with [facility] at 1400
--- NOTE | 2021-02-18 14:19 | NUR ---
REPORT TO SUMEET AT [facility].
[2021-02-18] MEDS ORDERED: ACETAMINOPHEN 325 MG TABLET ONE (14:54)
[2021-02-18] MEDS ORDERED: ACETAMINOPHEN 500 MG TABLET PO ONE (15:00)
--- NOTE | 2021-02-18 15:12 | NUR ---
PT TRANSPORTED TO [facility], [facility]IA [facility].
== END 2021-02-18 15:24 | disposition other institution (70) ==
LOC: ED 09:14
DX: R45.851 Suicidal ideations (principal); M54.5 Low back pain
CPT/HCPCS: 36415; 80053; 80299; 80307; 80320; 80329; 81001; 85025; 99283; G0480

== ENCOUNTER 2021-03-05 11:55 | Emergency (ER) | payer MEDICAID ==
[~2021-03-05] VITALS: Ht 190.5 cm; Wt 90.0 kg
--- NOTE | 2021-03-05 12:05 | NUR ---
PT AMBULATORY TO ROOM, PT CHANGED INTO GOWN. PT CONNECTED TO MONITORS. PT AFFECT IS CALM AND COOPERATIVE, APPROPRIATE TO STAFF. PT STATES HE'S HEARING VOICES. DENIES SI/HI AT THIS TIME. CALL LIGHT WITHIN REACH. PA AT BS
[2021-03-05] MEDS ORDERED: LORazepam 1MG TABLET ONE (12:20)
[2021-03-05] MEDS ORDERED: SULFAMETH./TRIMETHOPRIM DS 800MG/160MG TABLET ONE (12:26)
[2021-03-05] MEDS ORDERED: CEPHALEXIN 500 MG CAPSULE ONE (12:26)
[2021-03-05] MEDS ORDERED: LORazepam 1MG TABLET PO ONE (12:30)
[2021-03-05] MEDS ORDERED: SULFAMETH./TRIMETHOPRIM DS 800MG/160MG TABLET PO ONE (12:30)
[2021-03-05] MEDS ORDERED: CEPHALEXIN 500 MG CAPSULE PO ONE (12:30)
[2021-03-05 12:33] LABS: BASOPHILS % (AUTO) 0 % (0-1); EOSINOPHILS % (AUTO) 1 % (1-7); LYMPHOCYTES % (AUTO) 12 % (22-44); MEAN CORPUSCULAR HEMOGLOBIN 28.8 pg (27.5-34.5); MEAN CORPUSCULAR HGB CONC 33.2 g/dL (33.2-36.2); MEAN PLATELET VOLUME 6.7 fL (7.4-10.4); MONOCYTES % (AUTO) 5 % (2-9); NEUTROPHILS % (AUTO) 82 % (42-75); PLATELET COUNT 327 x10^3/uL (130-400); RED BLOOD COUNT 4.14 x10^6/uL (4.38-5.82); RED CELL DISTRIBUTION WIDTH 15.1 % (9.4-14.8)
[2021-03-05 12:43] LABS: ALBUMIN 3.6 g/dL (3.4-5.0); CALCIUM 8.2 mg/dL (8.5-10.1); CHLORIDE 107 mmol/L (98-107); CREATININE 0.76 mg/dL (0.7-1.3); SALICYLATE LEVEL 2.1 mg/dL (2.8-20.0)
[2021-03-05 12:50] LABS: ANION GAP 7 mmol/L (5-15)
[2021-03-05 12:59] LABS: AMPHETAMINE SCREEN, URINE Positive (Negative); BARBITURATE SCREEN, URINE Negative (Negative); BENZODIAZEPINE SCREEN, URINE Negative (Negative); CANNABINOID SCREEN, URINE Negative (Negative); COCAINE SCREEN, URINE Negative (Negative); METHADONE SCREEN, URINE Negative (Negative); OPIATE SCREEN, URINE Negative (Negative)
--- NOTE | 2021-03-05 13:11 | NUR ---
PSYCH ROSE GRADER CALLED FOR CONSULT
[2021-03-05] MEDS ORDERED: ACETAMINOPHEN 325 MG TABLET ONE (13:21)
[2021-03-05] MEDS ORDERED: ACETAMINOPHEN 325 MG TABLET PO ONE (13:30)
--- NOTE | 2021-03-05 14:11 | NUR ---
PT SITTING ON GURNEY WATCHING TV, STATES PAIN HAS DECREASED SINCE MEDICATION. NADN/VSS. CALL LIGHT WITHIN REACH. NO NEED AT THIS TIME
--- NOTE | 2021-03-05 14:25 | NUR ---
[employer] ADMINISTRATOR AT BS
[2021-03-05 15:21] VITALS: BP 133/87
--- NOTE | 2021-03-05 15:22 | NUR ---
PT SITTING ON GURNEY, WATCHING TV. NOTICEABLY LESS ANXIOUS THEN UPON ARRIVAL. NADN/VSS. CALL LIGHT WITHIN REACH.
[2021-03-05] MEDS ORDERED: NEOSPORIN OINT. PKT 1 PACKET ONE (15:38)
--- NOTE | 2021-03-05 15:57 | NUR ---
Patient given discharge instructions and RX, they have confirmed that they understand the instructions. Patient ambulatory with steady gait. PT GIVEN WOUND CARE FOLLOW UP PAPERWORK AND TAXI VOUCHER TO [facility] CRISIS TRIAGE
== END 2021-03-05 16:00 | disposition home or self-care (01) ==
LOC: ED 14:19
DX: F15.129 Other stimulant abuse with intoxication, unspecified (principal); F13.239 Sedative, hypnotic or anxiolytic dependence with withdrawal, unspecified; R44.0 Auditory hallucinations; L03.312 Cellulitis of back [any part except buttock and flank]
CPT/HCPCS: 36415; 80048; 80299; 80307; 80320; 80329; 82040; 85025; 99284; G0480

== ENCOUNTER → 2021-03-12 | Outpatient (CLI) | payer MEDICAID | END | disposition home or self-care (01) | LOC: WOUND 12:36 | PROVIDERS: ATTEND Internal Medicine | DX: L03.317 Cellulitis of buttock (principal); S31.819A Unspecified open wound of right buttock, initial encounter; F32.9 Major depressive disorder, single episode, unspecified; F41.9 Anxiety disorder, unspecified; M72.6 Necrotizing fasciitis; F15.90 Other stimulant use, unspecified, uncomplicated; F13.20 Sedative, hypnotic or anxiolytic dependence, uncomplicated; F20.9 Schizophrenia, unspecified; F42.9 Obsessive-compulsive disorder, unspecified; F10.20 Alcohol dependence, uncomplicated; Z87.891 Personal history of nicotine dependence; X58.XXXA Exposure to other specified factors, initial encounter; Y93.89 Activity, other specified; Y92.89 Other specified places as the place of occurrence of the external cause; Y99.8 Other external cause status | CPT/HCPCS: 97597; 99215 ==